=== PATIENT | male | born 1930 | race Caucasian/White ===

== ENCOUNTER 2017-11-14 13:44 | Inpatient (IN) | payer MEDICARE, BC ==
[~2017-11-14] VITALS: Ht 182.9 cm; Wt 111.1 kg
[~2017-11-14 13:44] MED LIST: Z.0.DIOVAN160 MG PO; Z.0.GABAPENTIN600 MG PO; Z.0.GLIPIZIDE5 MG PO; [UNRECOGNIZED DRUG - OTHER] PO
[2017-11-14] MEDS ORDERED: SODIUM CHLORIDE 0.9% 500ML 500 ML IV STA (13:58)
[2017-11-14] MEDS ORDERED: LEVOFLOXACIN 750MG/D5W 150ML 150 ML IV ONE (14:00)
[2017-11-14] MEDS ORDERED: ALBUTEROL/IPRATROPIUM 3 ML NEB NEB ONE (14:00)
[2017-11-14] MEDS ORDERED: METHYLPREDNISOLONE SOD SUCC 125 MG/2ML VIAL IV ONE (14:00)
[2017-11-14] MEDS ORDERED: ACETAMINOPHEN 325 MG TAB PO PRN (14:00)
[2017-11-14] MEDS ORDERED: ONDANSETRON HCL INJ 2 MG/ML VIAL IV PRN ×2 (14:00→16:00)
[2017-11-14] MEDS ORDERED: SODIUM CHLORIDE FLUSH 10 ML SYR INJ PRN (14:00)
--- NOTE | 2017-11-14 14:42 | Diagnostic Imaging Report ---
EXAMINATION: CHEST SINGLE (PORTABLE) INDICATION: COUGH, concern for CHF, pneumonia. COMPARISON: 03/06/2011. FINDINGS: TUBES and LINES: None. LUNGS: Patchy density in the lung bases suggestive of scarring, unchanged from prior examination of 2010. There is no evidence of pneumonia or pulmonary edema. PLEURA: No pleural effusion or pneumothorax. HEART AND MEDIASTINUM: The cardiac silhouette remains mildly enlarged. Mediastinal wires. Tortuous thoracic aorta with calcifications of the arch. BONES AND SOFT TISSUES: No acute osseous lesion. Soft tissues are unremarkable. UPPER ABDOMEN: No free air under the diaphragm. IMPRESSION: No acute thoracic abnormality. Signed by: Dr. Jose Vivar M.D. on 11/14/2017 2:38 PM
[2017-11-14 14:59] LABS: BASOPHILS % 0.3 % (0.0-1.0); EOSINOPHILS # (AUTO) 0.1 (0.0-0.4); EOSINOPHILS % 1.9 % (0.0-6.0); HEMATOCRIT 37.9 % (38.2-49.6); HEMOGLOBIN 12.7 g/dL (14.0-18.0); LYMPHOCYTES # (AUTO) 1.1 (1.0-3.2); LYMPHOCYTES % 19.8 % (18.0-39.1); MEAN CORPUSCULAR HEMOGLOBIN 29.4 pg (28-32); MEAN CORPUSCULAR HGB CONC 33.5 g/dL (31-35); MEAN CORPUSCULAR VOLUME 87.7 fL (81-99); NEUTROPHILS # (AUTO) 3.5 (2.1-6.9); NEUTROPHILS % 60.7 % (38.7-80.0); PLATELET COUNT 173 x10e3/uL (140-360); RED BLOOD COUNT 4.32 x10e6/uL (4.3-5.7); RED CELL DISTRIBUTION WIDTH 16.5 % (11.7-14.4)
[2017-11-14 15:17] LABS: ALBUMIN 3.5 g/dL (3.5-5.0); ANION GAP 13.4 mmol/L (8-16); CALCIUM 9.2 mg/dL (8.4-10.2); CREATININE, SERUM 1.68 mg/dL (0.72-1.25); MAGNESIUM 1.8 MG/DL (1.3-2.1); POTASSIUM 4.4 mmol/L (3.5-5.1)
[2017-11-14 15:24] LABS: CREATINE KINASE MB 1.3 ng/mL (0-5.0)
[2017-11-14] MEDS ORDERED: SODIUM CHLORIDE 0.9% 1000ML 1,000 ML IV SCH (15:53)
[2017-11-14] MEDS ORDERED: ENOXAPARIN SODIUM INJ 100 MG/ML SYR SC STA (15:53)
[2017-11-14] MEDS ORDERED: ALBUTEROL/IPRATROPIUM 3 ML NEB ONE (15:55)
[2017-11-14] MEDS ORDERED: DEXTROSE 50% SYRINGE 50 ML IV PRN (16:00)
[2017-11-14] MEDS ORDERED: ASPIRIN 81 MG CHEW TAB PO ONE (16:00)
[2017-11-14] MEDS ORDERED: DEXTROSE 50% SYRINGE 50 ML IV STA (16:01)
[2017-11-14] MEDS ORDERED: DEXTROSE 50% SYRINGE 50 ML IV ONE (16:06)
[2017-11-14] MEDS ORDERED: INSULIN REGULAR, HUMAN 100 UNIT/1 ML 3ML VIAL SQ SCH (16:30)
[2017-11-14] MEDS ORDERED: LANTUS 3ML100 UNITS/ SC (17:36)
[2017-11-14] MEDS ORDERED: HUMALOG100 UNIT/3 SC ×3 (17:36)
[2017-11-14] MEDS ORDERED: TERAZOSIN HCL1 MG PO (17:36)
[2017-11-14] MEDS ORDERED: LYRICA150 MG PO (17:36)
[2017-11-14] MEDS ORDERED: TRILIPIX135 MG PO (17:36)
[2017-11-15] MEDS ORDERED: LEVOFLOXACIN 500MG/D5W 100ML 100 ML IV SCH (09:00)
== END 2017-11-14 17:47 | disposition left against medical advice (07) | DRG 313 ==
LOC: ER 13:44 → ERHOLD 15:53 → MED/SURG 17:06
PROVIDERS: ADMIT Internal Medicine; ATTEND Internal Medicine
DX: R07.9 Chest pain, unspecified (principal); R05 Cough; Z87.891 Personal history of nicotine dependence
CPT/HCPCS: 36415; 71045; 80053; 82550; 82553; 82948; 83735; 83880; 84484; 85025; 87040; 87071; 87205; 93005; 94640; 99284; J1650; J2930; J7040; J7799

== ENCOUNTER 2017-11-29 15:37 | Inpatient (IN) | payer MEDICARE, BC ==
[~2017-11-29] VITALS: Ht 180.3 cm; Wt 108.4 kg
[~2017-11-29 15:37] MED LIST changes: +HUMALOG100 UNIT/3 SC; +LANTUS 3ML100 UNITS/ SC; +LYRICA150 MG PO; +TERAZOSIN HCL1 MG PO; +TRILIPIX135 MG PO
[2017-11-29 17:38] LABS: BASOPHILS % 0.4 % (0.0-1.0); EOSINOPHILS # (AUTO) 0.2 (0.0-0.4); EOSINOPHILS % 2.4 % (0.0-6.0); HEMATOCRIT 38.2 % (38.2-49.6); HEMOGLOBIN 12.7 g/dL (14.0-18.0); LYMPHOCYTES # (AUTO) 1.6 (1.0-3.2); MEAN CORPUSCULAR HEMOGLOBIN 29.2 pg (28-32); MEAN CORPUSCULAR HGB CONC 33.2 g/dL (31-35); MEAN CORPUSCULAR VOLUME 87.8 fL (81-99); MONOCYTES # (AUTO) 0.7 (0.2-0.8); MONOCYTES % 9.7 % (4.4-11.3); NEUTROPHILS # (AUTO) 4.3 (2.1-6.9); NEUTROPHILS % 63.8 % (38.7-80.0); PLATELET COUNT 218 x10e3/uL (140-360); RED BLOOD COUNT 4.35 x10e6/uL (4.3-5.7); RED CELL DISTRIBUTION WIDTH 16.6 % (11.7-14.4)
[2017-11-29 17:55] LABS: ALBUMIN 3.6 g/dL (3.5-5.0); ALBUMIN/GLOBULIN RATIO 1.1 (0.8-2.0); ANION GAP 15.9 mmol/L (8-16); CALCIUM 9.4 mg/dL (8.4-10.2); CREATININE, SERUM 2.2 mg/dL (0.72-1.25); POTASSIUM 4.9 mmol/L (3.5-5.1)
[2017-11-29 18:01] LABS: CREATINE KINASE MB 1.7 ng/mL (0-5.0)
[2017-11-29] MEDS ORDERED: SODIUM CHLORIDE 0.9% 1000ML 1,000 ML IV SCH (18:30)
--- NOTE | 2017-11-29 18:50 | Diagnostic Imaging Report ---
EXAM: CT Chest WITHOUT contrast INDICATION: \S\cough x 1 month \S\[id number] \S\1822 COMPARISON: Chest x-ray on 11/14/2017. Chest CT dated 09/25/2015 TECHNIQUE: Chest was scanned utilizing a multidetector helical scanner from the lung apex through the level of the adrenal glands without administration of IV contrast. Absence of intravenous contrast decreases sensitivity for detection of lymphadenopathy and vascular pathology. Coronal and sagittal reformations were obtained. Routine protocol was performed. IV CONTRAST: None COMPLICATIONS: None RADIATION DOSE: Total DLP: 599.5 mGy*cm Estimated effective dose: (DLP x 0.014 x size factor) mSv CTDIvol has been reviewed. It is below the limits set by the Radiation Protocol Committee (RPC). FINDINGS: LINES/ TUBES: None. LUNGS AND AIRWAYS: Lingular tiny calcified glioma. Posterior left lower lobe and to lesser extent right lower lobe tree-in-bud opacities (series 3, image 39). Nonspecific 3 mm posterior right lower lobe nodule (series 3, image 37). There are additional subpleural tiny lung nodules. Airways are normal. PLEURA: The pleural spaces are clear. HEART AND MEDIASTINUM: The thyroid gland is normal. No mediastinal, hilar or axillary lymphadenopathy. The heart is normal in size.. There is no pericardial effusion. Moderate atherosclerotic calcification of coronary arteries and aortic arch. Median sternotomy wires. UPPER ABDOMEN: Bilateral renal cysts. Partially seen right hemicolectomy. BONES: Degenerative changes of thoracic spine. Median sternotomy wires. SOFT TISSUES: Unremarkable. IMPRESSION: Predominantly posterior left lower lobe tree-in-bud opacities, concerning for infectious/inflammatory process. Scattered mostly subpleural nonspecific tiny lung nodules. Signed by: Dr. Caismiro Bass MD on 11/29/2017 6:47 PM
[2017-11-29] MEDS ORDERED: LEVOFLOXACIN 500MG/D5W 100ML IV SCH (19:00)
[2017-11-29] MEDS ORDERED: LEVOFLOXACIN 500MG/D5W 100ML 100 ML IV SCH (19:15)
[2017-11-29] MEDS: SODIUM CHLORIDE 0.9% 1000ML 1,000 ML IV SCH (19:25)
[2017-11-29] MEDS: AZITHROMYCIN 500MG/NS 250 ML 250 ML IV SCH (19:25)
[2017-11-29] MEDS: CEFTRIAXONE SOD 1 GM VIAL IV SCH (19:25)
[2017-11-29] MEDS: ALBUTEROL/IPRATROPIUM 3 ML NEB NEB SCH ×2 (19:40→23:10)
[2017-11-29] MEDS ORDERED: CYMBALTA60 MG PO (19:56)
[2017-11-29] MEDS: METHYLPREDNISOLONE SOD SUCC 125 MG/2ML VIAL IV SCH (21:08)
[2017-11-30] VITALS (8 sets, daily range): BP systolic 133–185; BP diastolic 57–94
[2017-11-30 01:12] LABS: CREATINE KINASE MB 2.4 ng/mL (0-5.0)
[2017-11-30] MEDS: ALBUTEROL/IPRATROPIUM 3 ML NEB NEB SCH ×6 (04:00→23:05)
[2017-11-30] MEDS: SODIUM CHLORIDE 0.9% 1000ML 1,000 ML IV SCH ×2 (04:51→17:15)
[2017-11-30] MEDS ORDERED: PANTOPRAZOLE SOD 40 MG TABEC PO ONE (05:45)
[2017-11-30 05:55] LABS: BASOPHILS % 0.2 % (0.0-1.0); HEMOGLOBIN 13.1 g/dL (14.0-18.0); LYMPHOCYTES # (AUTO) 0.9 (1.0-3.2); LYMPHOCYTES % 17.6 % (18.0-39.1); MEAN CORPUSCULAR HEMOGLOBIN 29.1 pg (28-32); MEAN CORPUSCULAR HGB CONC 32.8 g/dL (31-35); MEAN CORPUSCULAR VOLUME 88.9 fL (81-99); MONOCYTES # (AUTO) 0.1 (0.2-0.8); MONOCYTES % 1.4 % (4.4-11.3); NEUTROPHILS # (AUTO) 3.9 (2.1-6.9); NEUTROPHILS % 79.8 % (38.7-80.0); RED CELL DISTRIBUTION WIDTH 16.2 % (11.7-14.4)
[2017-11-30 06:17] LABS: PLATELET COUNT 180 x10e3/uL (140-360)
[2017-11-30 06:25] LABS: ANION GAP 17.9 mmol/L (8-16); CALCIUM 9.1 mg/dL (8.4-10.2); CREATININE, SERUM 1.98 mg/dL (0.72-1.25); POTASSIUM 4.9 mmol/L (3.5-5.1)
[2017-11-30 07:07] LABS: CREATINE KINASE MB 3.1 ng/mL (0-5.0)
--- NOTE | 2017-11-30 07:07 | Consultation ---
DATE OF CONSULTATION: November 30, 2017 PULMONARY MEDICINE CONSULTATION REASON FOR REFERRAL: Chronic cough. HISTORY: Mr. Oliva is a pleasant 87-year-old gentleman with subacute cough. Patient has had cough for 1 month. Patient with some phlegm that is mildly discolored. No associated fevers. Does not know what brought on the symptoms. Does have GERD. No history of asthma. No allergies. He took 3 antibiotics in the interim and these have failed. He comes into the emergency room. Oxygen saturation 95% on 2 L per minute by nasal cannula. Chest x-ray shows some very small left lower lung field opacities. Patient recommended for admission. I am consulted. PAST MEDICAL HISTORY: Daily GERD, hypertension, diabetes, hyperlipidemia, colon cancer 12 years ago, status post hemicolectomy and chemotherapy, coronary artery disease, status post CABG. MEDICATIONS: List reviewed per electronic record. ALLERGIES: PENICILLIN IS CITED. SOCIAL HISTORY: Patient smoked from age 13 to 41, 1.5 packs per day. Otherwise, no drinking. No drugs. Patient formerly worked in service stations. FAMILY HISTORY: Noncontributory to this admission. REVIEW OF SYSTEMS GENERAL: No weight loss. HEENT: No bloody nose. ENDOCRINE: No known thyroid disease. PULMONARY: No COPD. CARDIAC: No heart attacks. GI: There is no constipation. : No blood in the urine. DERMATOLOGIC: No rashes. NEUROLOGIC: No seizures. PSYCHIATRIC: No dysthymia right now. PHYSICAL EXAMINATION VITALS: Afebrile. Vital signs noted per electronic record. GENERAL: In no acute distress. Alert and calm. HEENT: Normocephalic and atraumatic. NECK: Supple. Throat midline. LUNGS: Bilateral air entry. Small rhonchi heard. CARDIOVASCULAR: S1 and S2. No murmurs, rubs or gallops. ABDOMEN: Soft and nontender. EXTREMITIES: No clubbing. No cyanosis. There is no edema. INTEGUMENT: No rash. No purpura. LABS: Potassium 4.9, BUN 40, creatinine 2.2. White count 6.7, hematocrit 38 and platelets 218,000. IMPRESSION AND PLAN 1. Abnormal chest radiography: Small opacities. Also, chronic bronchitis, bronchiolitis and possible sequelae of gastroesophageal reflux disease. Possible other chronic infection. 2. Subacute cough. 3. Elevated creatinine: Unknown whether it is acute versus chronic or both to me. 4. Former smoker: Quit a long time ago. 5. Significant daily gastroesophageal reflux disease. 6. History of coronary artery bypass graft and coronary artery disease. 7. Colon cancer: Status post hemicolectomy and chemotherapy about 12 years ago. 8. Hyperlipidemia. 9. Diabetes. 10. Hypertension. Patient deserves to be treated as pneumonia. Azithromycin and ceftriaxone were given. Will withhold vancomycin, but will await the cultures on the sputum that were sent. Continue daily and will cut down by tomorrow. Bronchodilators are reasonable. If there is any lag in improvement on culture base therapy, will consider bronchoscopy. Thank you very much, Dr. Adler, for allowing me the chance to participate in the care of Mr. Oliva. Do not hesitate to contact me if I can help in any way. Job#: [id number] MS
[2017-11-30] MEDS: METHYLPREDNISOLONE SOD SUCC 125 MG/2ML VIAL IV SCH ×2 (08:58→21:16)
[2017-11-30] MEDS: CEFTRIAXONE SOD 1 GM VIAL IV SCH ×2 (08:58→21:16)
[2017-11-30] MEDS ORDERED: DEXTROSE 50% SYRINGE 50 ML IV PRN (10:45)
[2017-11-30] MEDS ORDERED: INSULIN DETEMIR 100 UNIT/ML PEN SQ PRN (10:45)
--- NOTE | 2017-11-30 11:07 | Consultation ---
DATE OF CONSULTATION: November 30, 2017 HISTORY OF PRESENT ILLNESS: This is an 87-year-old gentleman with history of cough. He was admitted, and nephrology was consulted for abnormal kidney function. PAST HISTORY: Has prior history of coronary artery disease, status post bypass surgery. History of colon cancer, status post hemicolectomy and chemotherapy. History of prostate enlargement, hypertension and type-2 diabetes. SOCIAL HISTORY: Patient is . Does not smoke or drink. ALLERGIES: PENICILLIN. CURRENT REVIEW OF SYSTEMS: Negative for shortness of breath, nausea, vomiting, headache, fever or chills. CURRENT MEDICATIONS 1. Azithromycin. 2. Normal saline 100 mL an hour. 3. Albuterol and Atrovent nebulizer. 4. Rocephin 1 gram IV q.12. 5. Levaquin has been discontinued. 6. Methylprednisolone 80 mg IV q.12. 7. Protonix 40 mg once. LABS: White count is 4.84, hemoglobin 13.1. Sodium 139, potassium 4.1, bicarbonate 21, BUN 39, creatinine 1.98. BNP 37.2. PHYSICAL EXAMINATION GENERAL: Awake, alert, sitting up in no apparent distress. VITALS: Blood pressure 140/75, pulse rate 73, afebrile, respiratory rate 18. HEAD AND NECK: Corneas clear. Oral mucosa dry. LUNGS: Occasional rales, right and left lower zone. HEART: S1, S2 audible. ABDOMEN: Otherwise soft and nontender. LOWER EXTREMITIES: No edema. IMPRESSION AND PLAN 1. Acute kidney injury in a patient with diabetes. 2. Hypertension. 3. Coronary artery disease, status post bypass surgery. Scheduled for a bronchoscopy for abnormal CT scan of the chest. Plan on working up. Continue with IV normal saline. Avoid NSAIDs, angiotensin receptor blockers and ARBs. Will obtain spot urine protein to creatinine ratio. Kidney ultrasound. Apply knee-high SARI hoses. Further recommendations to follow. Job#: [id number]
[2017-11-30] MEDS ORDERED: INSULIN LISPRO 24 UNIT SC SCH ×2 (11:30→16:30)
[2017-11-30] MEDS: PREGABALIN 75 MG CAP PO SCH ×2 (11:56→16:50)
[2017-11-30] MEDS: INSULIN LISPRO 100 UNIT/1 ML 3ML VIAL SQ SCH ×5 (12:05→22:08)
--- NOTE | 2017-11-30 12:09 | History and Physical ---
Mr. Oliva is an 87-year-old male who had had cough, syncope, and the patient was coughing on 11/22/2017. Subsequently the patient had yellowish mucus. The patient claimed that he had "everything going black when I cough really hard." Patient was seen in the [facility] Emergency Room 3 weeks back for wheezing. The patient was given Cipro. SOCIAL HISTORY: Noncontributory. FAMILY HISTORY: Noncontributory. ALLERGIES: REPORTED NONE. MEDICATIONS: At this time 1. Humalog. 2. Lantus. 3. Lyrica. 4. Hydrocodone. 5. Valsartan. 6. Terazosin. 7. Fenofibrate. 8. Nitroglycerin. 9. Benzonate. 10. Cipro. REVIEW OF SYSTEMS HEENT: Normal. CARDIAC: History of hypertension. RESPIRATORY: Persistent cough. GI: History of colon cancer, resected in 2006, Cook C1. Had systemic chemotherapy. : Normal. MUSCULOSKELETAL: History of peripheral neuropathy related to diabetes mellitus. NEUROENDOCRINE: History of diabetes mellitus. PHYSICAL EXAM GENERAL: A moderately built male. No palpable adenopathy. HEART: Within normal limits. LUNGS: Coarse crepitations. ABDOMEN: Obese. Midline scar of surgery seen. RECTAL EXAM: Deferred. CENTRAL NERVOUS SYSTEM: Essentially normal. IMPRESSIONS 1. Cough syncope. 2. Upper respiratory tract infection, possible bronchopneumonia. 3. Hypertension. 4. Coronary artery disease. 5. Diabetes mellitus, insulin-dependent. 6. Chronic renal failure. 7. Peripheral neuropathy. PLAN: To have a CT of the chest, bronchoscopy, aggressive antibiotic therapy. Job#: [id number] CRISPIN
[2017-11-30] MEDS: DULOXETINE HCL 30 MG DELAYED RELEASE PO SCH (12:18)
[2017-11-30] MEDS: VALSARTAN 160 MG TAB PO SCH (16:50)
[2017-11-30] MEDS: TERAZOSIN HCL 1 MG CAP PO SCH (16:50)
[2017-11-30] MEDS ORDERED: NON-FORMULARY MEDICATION (Pregabalin (Lyrica) 150 MG) PO SCH (17:00)
[2017-11-30] MEDS ORDERED: ACETAMINOPHEN 325 MG TAB PO PRN (17:15)
[2017-11-30] MEDS ORDERED: ASPIRIN 81 MG CHEW TAB PO ONE (20:45)
[2017-11-30] MEDS ORDERED: ASPIRIN 81 MG CHEW TAB PO PRN (21:00)
[2017-11-30] MEDS: AZITHROMYCIN 500MG/NS 250 ML 250 ML IV SCH (21:16)
[2017-11-30 21:31] LABS: MAGNESIUM 1.8 MG/DL (1.3-2.1)
[2017-11-30 21:54] LABS: CREATINE KINASE MB 6.6 ng/mL (0-5.0); FREE THYROXINE INDEX 1.8329 (1.4-3.8); THYROID STIMULATING HORMONE 0.4 uIU/mL (0.350-4.940)
--- NOTE | 2017-11-30 22:54 | Consultation ---
DATE OF CONSULTATION: November 30, 2017 CLINICAL HISTORY: This is an 87-year-old white man known to me from previous evaluations, referred by Dr. Adler for cardiovascular evaluation in the setting of near syncope related to cough. According to the patient, he has had this productive cough with yellow sputum for approximately a month. He went to see Dr. Adler today and in the office he started coughing and had near syncopal spell. Dr. Adler then decided to admit him. CT scan of the chest showed posterior left lower lobe opacity suggestive of inflammatory disease. EKG showed no acute changes. While waiting in the observation unit, he developed left-sided chest pain rated 1 on the scale of 10 lasting for approximately 30 minutes. EKG failed to show any acute changes. Cardiology consultation requested. PAST MEDICAL HISTORY: Remarkable for coronary artery disease in 1989, he had angioplasty of the proximal LAD in 1990, he had restenosis and underwent repeat procedure. In 1992, he underwent plain balloon angioplasty of the obtuse marginal artery. In 2001, he developed restenosis and underwent double vessel bypass surgery with internal mammary to the LAD and vein graft to the obtuse marginal artery. Since that time, he has been followed conservatively, remaining satisfactory. He has developed renal insufficiency. His creatinine is in the range of 2.1 to 2.2. He has had a vein procedure recently elsewhere for which he is not quite satisfied. Echocardiogram in May 2016 showed his ejection fraction to be normal in the range of 65% to 70%. He is chronically short of breath. Nuclear stress test in 2015 showed a large inferolateral scar, however, his ejection fraction was preserved. Past medical history is also remarkable for diabetes, hypertension, peripheral neuropathy, Paget disease, colon cancer, noncompliance, hyperlipidemia, kidney stones, chronic pain, chronic kidney disease stage 3. MEDICATIONS AT HOME: Included valsartan 160 mg p.o. daily, fenofibrate 135 mg daily, Lyrica 150 mg p.o. t.i.d., Lantus insulin, nitroglycerin p.r.n., NovoLog insulin, terazosin 5 mg p.o. b.i.d., Advil, duloxetine. PAST SURGICAL HISTORY: Included double vessel bypass surgery in 2001, lumbar laminectomy, partial colectomy, herniorrhaphy, epidural ejection of the elbow. FAMILY HISTORY: Noncontributory. PERSONAL/SOCIAL HISTORY: Denies smoking, drinking. ALLERGIES: TO PENICILLIN. REVIEW OF SYSTEMS: Noncontributory. PHYSICAL EXAMINATION: GENERAL: He is obese, elderly. CARDIAC: Jugular veins were not distended. S1, S2 were regular. There were no appreciable murmurs. LUNGS: Clear. ABDOMEN: Soft. Bowel sounds are present. EXTREMITIES: Show no cyanosis, clubbing or edema. LABORATORY STUDIES: The white count is 4800, hemoglobin is 13.1, platelet count is 180,000. The bicarb is 21, BUN is 39, creatinine is 1.98. IMPRESSION: 1. Bronchitis with cough and near syncope. 2. Coronary artery disease, status post previous balloon angioplasty and double vessel bypass surgery between 1989 and 2001. 3. Diabetes. 4. Hypertension. 5. History of colon cancer. 6. History of Paget disease. 7. Hyperlipidemia. 8. History of kidney stones. 9. Chronic kidney disease stage 3 with creatinine around 2. 10. History of anemia related to colon cancer. 11. Peripheral neuropathy. RECOMMENDATIONS: Due to his advanced age, I recommend conservative management. Thank you very much. Job#: [id number] GE cc:ESTELLA ADLER MD
[2017-12-01] VITALS (8 sets, daily range): BP systolic 127–175; BP diastolic 63–85
[2017-12-01] MEDS ORDERED: ASPIRIN 81 MG CHEW TAB ONE (00:38)
[2017-12-01] MEDS: ALBUTEROL/IPRATROPIUM 3 ML NEB NEB SCH ×7 (03:15→23:10)
[2017-12-01] MEDS: SODIUM CHLORIDE 0.9% 1000ML 1,000 ML IV SCH ×3 (04:10→20:58)
[2017-12-01 05:54] LABS: ANION GAP 17.1 mmol/L (8-16); CALCIUM 8.4 mg/dL (8.4-10.2); CREATININE, SERUM 1.73 mg/dL (0.72-1.25); POTASSIUM 5.1 mmol/L (3.5-5.1)
[2017-12-01 06:27] LABS: CREATINE KINASE MB 8.1 ng/mL (0-5.0)
[2017-12-01] MEDS ORDERED: INSULIN LISPRO 24 UNIT SC SCH (07:30)
[2017-12-01] MEDS: FENOFIBRIC ACID 135 MG PO SCH (09:00)
[2017-12-01] MEDS ORDERED: NON-FORMULARY MEDICATION (Duloxetine Hcl (Cymbalta) 60 MG) PO SCH (09:00)
[2017-12-01] MEDS: DULOXETINE HCL 30 MG DELAYED RELEASE PO SCH (09:07)
[2017-12-01] MEDS: METHYLPREDNISOLONE SOD SUCC 125 MG/2ML VIAL IV SCH (09:07)
[2017-12-01] MEDS: CEFTRIAXONE SOD 1 GM VIAL IV SCH ×2 (09:07→21:02)
[2017-12-01] MEDS: VALSARTAN 160 MG TAB PO SCH ×2 (09:08→17:24)
[2017-12-01] MEDS: TERAZOSIN HCL 1 MG CAP PO SCH ×2 (09:08→17:24)
[2017-12-01] MEDS: PREGABALIN 75 MG CAP PO SCH ×2 (09:28→17:24)
[2017-12-01] MEDS: INSULIN LISPRO 100 UNIT/1 ML 3ML VIAL SQ SCH ×7 (10:34→21:18)
--- NOTE | 2017-12-01 12:12 | Diagnostic Imaging Report ---
PROCEDURE:US RETROPERITONEAL ( KIDNEY ). COMPARISON:None. INDICATIONS:ACUTE KIDNEY INJURY TECHNIQUE:Ultrasound examination was performed of the kidneys and bladder. FINDINGS: Multiple sagittal and axial images were obtained of the right and left kidneys. The right kidney measures 12.1 cm. It is of normal echogenicity, without evidence of solid masses, hydronephrosis, or shadowing renal calculi. Three simple appearing right sided renal cysts are present, measuring up to 6.7 cm in the superior pole laterally, 4.1 cm in the superior pole medially, and 2.6 cm in the mid pole medially. The left kidney measures 9.7 cm. It is of normal echogenicity, without evidence of solid masses, hydronephrosis, or shadowing renal calculi. There is a simple cyst in the superior pole of the left kidney which measures up to 4.4 cm. An additional minimally complex hypoechoic cyst measures up to 3.4 cm, previously 2.5 cm on ultrasound from 12/31/2009. Given the minimal increase in size over this time, this is consistent with a benign cyst. Incidental hyperechoic appearance of the liver. The bladder and prostate are unremarkable. Bilateral ureteral jets are noted. CONCLUSION: Bilateral renal cysts as above. No evidence of hydronephrosis. Incidental hyperechoic liver, which may represent fatty liver. Electronically approved by: TINY MCKNIGHT M.D. on 12/01/2017 at 12:17
[2017-12-01] MEDS: SODIUM BICARBONATE 650 MG TAB PO SCH ×2 (12:33→16:30)
[2017-12-01 12:43] LABS: CREATINE KINASE MB 8.6 ng/mL (0-5.0)
[2017-12-01] MEDS ORDERED: TRAMADOL/APAP 37.5MG-325MG TAB PO PRN (16:00)
[2017-12-01] MEDS ORDERED: SODIUM BICARBONATE 650 MG TAB PO SCH (16:15)
[2017-12-01] MEDS ORDERED: TRAMADOL HCL 50 MG TAB PO PRN (16:15)
[2017-12-01] MEDS ORDERED: LACTULOSE SYRUP 20 GM/30 ML UDC PO ONE (20:15)
[2017-12-01] MEDS ORDERED: SOD POLYSTYRENE SULFONATE SUSP 15 GM/60 ML BTL PO ONE (20:15)
[2017-12-01] MEDS: AZITHROMYCIN 500MG/NS 250 ML 250 ML IV SCH (21:02)
[2017-12-02] VITALS: BP 169/72
--- NOTE | 2017-12-02 01:43 | Progress Note ---
DATE: December 01, 2017 PULMONARY MEDICINE PROGRESS NOTE SUBJECTIVE: Mr. Oliva was seen and examined at bedside. He walked today. He claims he does feel better. Sputum culture with moderate WBCs, few GPCs. Blood cultures x2 are still negative. There is less sputum that he is coughing out. REVIEW OF SYSTEMS: No headaches, no diarrhea. OBJECTIVE: VITAL SIGNS: Afebrile, vital signs noted per electronic record. GENERAL: In no acute distress, alert and calm. HEENT: Normocephalic, atraumatic. NECK: Supple. Throat midline. LUNGS: Bilateral air entry, rare rhonchi, mostly clear. Decreased breath sounds at base. CARDIOVASCULAR: S1, S2. No murmurs, rubs, or gallops. ABDOMEN: Soft, nontender. EXTREMITIES: No clubbing, no cyanosis, there is no edema. INTEGUMENT: No rash, no purpura. LABS: 42 BUN, 1.7 creatinine. 5.1 potassium, 5 white count, 40 hematocrit. IMPRESSION AND PLAN: 1. Acute pneumonia. 2. Subacute cough, not otherwise specified. 3. Obesity. 4. Elevated creatinine, ideed-du-cmolvvw kidney disease most likely. 5. Hyperkalemia, mild. 6. History of cancer of colon, status post surgery and chemotherapy long ago. Repeat laboratories tomorrow. Follow up potassium and creatinine and ensure more improvement. Continue antibiotics for pneumonia. wean down to prednisone. However, will be very careful. Consideration for bronchoscopy will ensue if patient has lag in improvement. Patient will eventually need repeat chest computerized tomography to ensure resolution of the findings from previous computerized axial tomography scan. Job#: [id number]
[2017-12-02] MEDS: ALBUTEROL/IPRATROPIUM 3 ML NEB NEB SCH ×5 (03:20→19:45)
[2017-12-02 04:00] VITALS: BP 167/80
[2017-12-02 05:19] LABS: ALBUMIN 3.1 g/dL (3.5-5.0); ALBUMIN/GLOBULIN RATIO 1.1 (0.8-2.0); ANION GAP 14.4 mmol/L (8-16); CALCIUM 8.3 mg/dL (8.4-10.2); CREATININE, SERUM 1.46 mg/dL (0.72-1.25); POTASSIUM 4.4 mmol/L (3.5-5.1)
[2017-12-02] MEDS: SODIUM CHLORIDE 0.9% 1000ML 1,000 ML IV SCH ×2 (06:19→16:53)
[2017-12-02 07:00] VITALS: BP 170/84
[2017-12-02] MEDS: INSULIN LISPRO 100 UNIT/1 ML 3ML VIAL SQ SCH ×7 (07:25→21:35)
[2017-12-02 08:00] VITALS: BP 170/84
[2017-12-02] MEDS: FENOFIBRIC ACID 135 MG PO SCH (08:21)
[2017-12-02] MEDS: PREGABALIN 75 MG CAP PO SCH ×2 (08:21→16:53)
[2017-12-02] MEDS: DULOXETINE HCL 30 MG DELAYED RELEASE PO SCH (08:21)
[2017-12-02] MEDS: PREDNISONE 20 MG TAB PO SCH (08:21)
[2017-12-02] MEDS: TERAZOSIN HCL 1 MG CAP PO SCH ×2 (08:21→16:53)
[2017-12-02] MEDS: CEFTRIAXONE SOD 1 GM VIAL IV SCH ×2 (08:21→20:35)
[2017-12-02] MEDS ORDERED: AMLODIPINE BESYLATE 5 MG TAB PO SCH (10:15)
[2017-12-02 12:00] VITALS: BP 156/84
[2017-12-02 20:00] VITALS: BP 159/82
[2017-12-02] MEDS: AZITHROMYCIN 500MG/NS 250 ML 250 ML IV SCH (20:35)
--- NOTE | 2017-12-02 23:57 | Progress Note ---
DATE: December 02, 2017 PULMONARY MEDICINE PROGRESS NOTE SUBJECTIVE: Mr. Oliva was seen and examined at bedside. He is on room air FiO2. He is breathing better. Still occasional mucus that he is coughing out. Patient remains with telemetry in place, but without any arrhythmias. REVIEW OF SYSTEMS: No headaches, no bleeding. OBJECTIVE: VITAL SIGNS: Afebrile, vital signs noted per electronic record. GENERAL: In no acute distress, alert and calm. HEENT: Normocephalic, atraumatic. NECK: Supple. Throat midline. LUNGS: Bilateral air entry, limited breath sounds at bases, few rhonchi. CARDIOVASCULAR: S1, S2. No murmurs, rubs, or gallops. ABDOMEN: Soft, obese. EXTREMITIES: No clubbing, no cyanosis, there is the 1+ edema. INTEGUMENT: No rash, no purpura. LABS: 4.4 potassium, improved. Other labs per record. IMPRESSION AND PLAN: 1. Acute pneumonia. 2. Subacute cough. 3. History of colon cancer, status post hemicolectomy and chemotherapy. 4. Weakness, mild. Continue current treatment at this time. Patient has steady improvement. Will continue weaning the steroids down and continue the prednisone at current dose. Continue bronchodilators. Antibiotics will be continued. Mobilize the patient. If he continues to get better, we hope to get discharge planning soon. Patient will need outpatient computerized tomography in about 2 months time for him to ensure appropriate clearance of the infiltrates. Job#: [id number]
[2017-12-03] VITALS (7 sets, daily range): BP systolic 135–178; BP diastolic 66–96
[2017-12-03] MEDS: ALBUTEROL/IPRATROPIUM 3 ML NEB NEB SCH ×5 (03:05→19:00)
[2017-12-03] MEDS: SODIUM CHLORIDE 0.9% 1000ML 1,000 ML IV SCH ×2 (05:05→13:00)
[2017-12-03 05:46] LABS: ALBUMIN 2.9 g/dL (3.5-5.0); ANION GAP 13.1 mmol/L (8-16); CALCIUM 8.4 mg/dL (8.4-10.2); CREATININE, SERUM 1.34 mg/dL (0.72-1.25); POTASSIUM 4.1 mmol/L (3.5-5.1)
[2017-12-03] MEDS: INSULIN LISPRO 100 UNIT/1 ML 3ML VIAL SQ SCH ×6 (07:30→17:20)
[2017-12-03] MEDS: FENOFIBRIC ACID 135 MG PO SCH (09:00)
[2017-12-03] MEDS ORDERED: AMLODIPINE BESYLATE 10 MG TAB PO SCH (09:00)
[2017-12-03] MEDS: PREGABALIN 75 MG CAP PO SCH ×2 (09:36→16:30)
[2017-12-03] MEDS: PREDNISONE 20 MG TAB PO SCH (09:36)
[2017-12-03] MEDS: DULOXETINE HCL 30 MG DELAYED RELEASE PO SCH (09:36)
[2017-12-03] MEDS: TERAZOSIN HCL 1 MG CAP PO SCH ×2 (09:36→16:34)
[2017-12-03] MEDS: CEFTRIAXONE SOD 1 GM VIAL IV SCH (09:36)
[2017-12-03] MEDS ORDERED: LOSARTAN POTASSIUM 25 MG TAB PO SCH (11:00)
[2017-12-03] MEDS ORDERED: PROCARDIA XL30 MG PO (21:07)
[2017-12-03] MEDS ORDERED: AZITHROMYCIN250 MG PO (21:07)
--- NOTE | 2017-12-04 02:33 | Progress Note ---
DATE: December 03, 2017 PULMONARY MEDICINE PROGRESS NOTE SUBJECTIVE: Mr. Oliva was seen and examined at bedside. He is on normal saline at 100 mL per hour. He feels much better. His cough has decreased. He is on room air FiO2 right now. REVIEW OF SYSTEMS: No bleeding, no rash. OBJECTIVE: VITAL SIGNS: Afebrile, vital signs noted per electronic record. GENERAL: In no acute distress, alert and calm. HEENT: Normocephalic. NECK: Supple. LUNGS: Bilateral air entry. CARDIOVASCULAR: S1, S2. ABDOMEN: Soft. INTEGUMENT: No rash. EXTREMITIES: 1+ edema. IMPRESSION AND PLAN: 1. Acute pneumonia. 2. Subacute cough. 3. History of colon cancer, status post hemicolectomy and chemotherapy. 4. Weakness, improving. 5. Elevated creatinine, chronic kidney disease presumed. 6. Gastroesophageal reflux disease. 7. Coronary artery disease and coronary artery bypass graft. 8. Hyperlipidemia, diabetes, hypertension. Antibiotics are continued. Steroids will be continued to be weaned. Wean off the intravenous fluid. Discharge planning is being done as per primary doctor and patient. Consideration should be for some bronchodilators, but patient later felt that he had to go from the hospital prematurely. Thank you very much, Dr. Adler for allowing me the chance to participate in the care of Mr. Oliva. I will see back and coordinate some inhalers for him to take on outpatient basis. Job#: [id number]
[2017-12-04] MEDS ORDERED: PREDNISONE 20 MG TAB PO SCH (09:00)
== END 2017-12-03 21:22 | disposition home or self-care (01) | DRG 194 ==
LOC: ER 15:37 → ERHOLD 19:35 → IMCU 11-30 → OBSVTOIN 11-30 14:14 → MED/SURG2 12-01 18:17
PROVIDERS: ADMIT Internal Medicine Medical Oncology; ATTEND Internal Medicine Medical Oncology
DX: J18.0 Bronchopneumonia, unspecified organism (principal); N17.9 Acute kidney failure, unspecified; E87.2 Acidosis; I12.9 Hypertensive chronic kidney disease with stage 1 through stage 4 chronic kidney disease, or unspecified chronic kidney disease; E11.22 Type 2 diabetes mellitus with diabetic chronic kidney disease; N18.3 Chronic kidney disease, stage 3 (moderate); I25.10 Atherosclerotic heart disease of native coronary artery without angina pectoris; Z98.61 Coronary angioplasty status; E11.51 Type 2 diabetes mellitus with diabetic peripheral angiopathy without gangrene; Z79.4 Long term (current) use of insulin; E78.5 Hyperlipidemia, unspecified; E66.9 Obesity, unspecified; Z68.33 Body mass index [BMI] 33.0-33.9, adult; Z95.1 Presence of aortocoronary bypass graft; Z87.891 Personal history of nicotine dependence; K21.9 Gastro-esophageal reflux disease without esophagitis; Z88.0 Allergy status to penicillin; E87.5 Hyperkalemia; Z85.038 Personal history of other malignant neoplasm of large intestine
CPT/HCPCS: 36415; 71250; 76770; 80048; 80053; 82550; 82553; 82948; 83735; 83880; 84436; 84443; 84479; 84484; 85025; 87040; 87070; 87205; 93005; 94640; 96372; 99284; G0378; J0456; J0696; J2930; J7030

== ENCOUNTER 2017-12-25 21:42 | Emergency (ER) | payer MEDICARE, BC ==
[~2017-12-25] VITALS: Ht 180.3 cm; Wt 108.4 kg
[~2017-12-25 21:42] MED LIST changes: +AZITHROMYCIN250 MG PO; +CYMBALTA60 MG PO; +PROCARDIA XL30 MG PO
== END 2017-12-25 22:42 | disposition home or self-care (01) ==
LOC: ER 21:42
DX: S91.112A Laceration without foreign body of left great toe without damage to nail, initial encounter (principal); W22.8XXA Striking against or struck by other objects, initial encounter; Y92.008 Other place in unspecified non-institutional (private) residence as the place of occurrence of the external cause; I10 Essential (primary) hypertension; E11.9 Type 2 diabetes mellitus without complications; E78.5 Hyperlipidemia, unspecified; Z95.1 Presence of aortocoronary bypass graft; Z85.038 Personal history of other malignant neoplasm of large intestine

== ENCOUNTER 2018-05-28 10:22 | Observation (INO) | payer MEDICARE, BC ==
[~2018-05-28] VITALS: Ht 177.8 cm; Wt 110.9 kg
--- OUTSIDE RECORDS SUMMARY | 2018-05-28 10:26 | XMS REPORT | Continuity of Care Document ---
Author Author [facility] Interface Address Unknown Phone Unavailable Problems Problem Status Onset Date Classification Date Reported Comments Source 719.45 - JOINT PAIN-PELV 724.02 - "SPIN Active 12/12/2012 SHAYAN Esposito M16.9 Active [facility] OSTEOARTHRITIS OF HIP, UNSPECIFIED Active [facility] Medications Medication Details Route Status Patient Instructions Ordering Provider Order Date Source Allergies, Adverse Reactions, Alerts Substance Category Reaction Severity Reaction type Status Date Reported Comments Source Immunizations Immunization Date Given Site Status Last Updated Comments Source Results Order Name Results Value Reference Range Date Interpretation Comments Source Hip 2/3 views uni DX Hip 2/3 views uni DX LEFT HIP, 2 VIEWS HISTORY: Osteoarthritis of hip unspecified. COMPARISON: None available. FINDINGS: No significant arthritic changes are identified. Hip joint space is preserved. No subchondral cystic change or significant osteophytosis. No fracture, dislocation, or aggressive osseous lesion. No evidence of femoral head osteonecrosis. SL: [id number] 06/01/2016 - - Read by: Av Abbott MD Dictated Date/time: 06/01/16 15:15 Electronically Signed by: Av Abbott MD 06/01/16 15:16 FINAL REPORT [facility] Vital Signs Vital Sign Value Date Comments Source Encounters Location Location Details Encounter Type Encounter Number Reason For Visit Attending Provider ADM Date DC Date Status Source OD [id number] 719.45 - JOINT PAIN-PELV 724.02 - "SPIN STEN,LUMBR" [address] 12/16/2012 Active SHAYAN Esposito [facility] Outpatient [id number] Misti Freeman 06/01/2016 06/02/2016 [facility] Procedures Procedure Code Date Perfomer Comments Source
[2018-05-28] MEDS ORDERED: ASPIRIN 81 MG CHEW TAB PO ONE (10:30)
[2018-05-28 11:00] LABS: BASOPHILS % 0.5 % (0.0-1.0); EOSINOPHILS # (AUTO) 0.1 (0.0-0.4); EOSINOPHILS % 1.9 % (0.0-6.0); HEMATOCRIT 40.1 % (38.2-49.6); HEMOGLOBIN 13.3 g/dL (14.0-18.0); LYMPHOCYTES # (AUTO) 1.5 (1.0-3.2); LYMPHOCYTES % 35.6 % (18.0-39.1); MEAN CORPUSCULAR HEMOGLOBIN 29.8 pg (28-32); MEAN CORPUSCULAR HGB CONC 33.2 g/dL (31-35); MEAN CORPUSCULAR VOLUME 89.7 fL (81-99); MONOCYTES # (AUTO) 0.4 (0.2-0.8); NEUTROPHILS # (AUTO) 2.2 (2.1-6.9); NEUTROPHILS % 52.3 % (38.7-80.0); PLATELET COUNT 150 x10e3/uL (140-360); RED BLOOD COUNT 4.47 x10e6/uL (4.3-5.7); RED CELL DISTRIBUTION WIDTH 17.5 % (11.7-14.4)
[2018-05-28 11:13] LABS: PROTHROMBIN TIME 14.1 seconds (11.9-14.5)
[2018-05-28 11:14] LABS: PARTIAL THROMBOPLASTIN TIME 34.6 seconds (23.8-35.5)
[2018-05-28 11:21] LABS: ALBUMIN 3.8 g/dL (3.5-5.0); ALBUMIN/GLOBULIN RATIO 1.3 (0.8-2.0); CALCIUM 9.1 mg/dL (8.4-10.2); CREATININE, SERUM 1.73 mg/dL (0.72-1.25); MAGNESIUM 2.4 MG/DL (1.3-2.1)
[2018-05-28 11:41] LABS: CREATINE KINASE MB 1.5 ng/mL (0-5.0); THYROID STIMULATING HORMONE 2.424 uIU/mL (0.350-4.940)
--- NOTE | 2018-05-28 12:05 | Diagnostic Imaging Report ---
EXAMINATION: CHEST SINGLE (PORTABLE) COMPARISON: Chest x-ray 11/14/2017 INDICATION: Altered level of consciousness, weakness ^ERMD ORDER ^[id number] ^1100 ^Y DISCUSSION: Frontal view of the chest obtained at 1140 hours. HEART AND MEDIASTINUM: Stable cardiomegaly and aortic ectasia. LINES: None. LUNGS: Diffuse hyperinflation suggestive of small airways disease. Increased lung markings in the bases. Central pulmonary vascular is prominent but stable. PLEURA: No pleural effusion or pneumothorax. BONES AND SOFT TISSUES: Median sternotomy wires are intact no focal osseous lesions.. The soft tissues are normal. IMPRESSION: Stable cardiomegaly. Mild vascular congestion. Bibasilar airspace opacities may represent atelectasis. Please correlate for signs/symptoms of pneumonia. Signed by: Dr. Garfield Ramirez MD on 05/28/2018 12:02 PM
[2018-05-28] MEDS ORDERED: TYLENOL WITH C1 EACH PO (12:25)
[2018-05-28] MEDS ORDERED: NORCO 7.5-3251 EACH PO (12:25)
[2018-05-28] MEDS ORDERED: NITROGLYCERIN0.4 MG SL (12:25)
[2018-05-28] MEDS ORDERED: LOSARTAN POTASS25 MG PO (12:25)
[2018-05-28 12:27] LABS: INFLUENZAE A&B ANTIGEN (RAPID) NEGATIVE (NEGATIVE)
[2018-05-28 12:31] LABS: STREPTOCOCCUS GRP A ANTIGEN NEGATIVE (NEGATIVE)
--- NOTE | 2018-05-28 12:44 | Diagnostic Imaging Report ---
EXAMINATION: Head CT HISTORY: Weakness, alteration of consciousness COMPARISON: Head CT REPORT on 01/20/2011 (unable to load images from prior head CT). TECHNIQUE: Multidetector axial images were obtained without contrast from the foramen magnum to the vertex . The images were reconstructed using brain and bone algorithms. Thin section brain images were reformatted into coronal and sagittal planes. Image quality: Motion/streaking artifact limits the evaluation of the skull base and posterior cranial fossa. Dose modulation, iterative reconstruction, and/or weight based adjustment of the mA/kV was utilized to reduce the radiation dose to as low as reasonably achievable. FINDINGS: Parenchyma: 1. Few scattered and mildly confluent periventricular white matter hypodensities, most likely age-appropriate chronic microvascular ischemic changes. 2. No mass or hemorrhage. No CT evidence of acute territorial vascular insult. Extra-axial spaces:No abnormal density. No extra-axial fluid collections Brain volume: Normal for age. Ventricles: No hydrocephalus or displacement. Arteries: No density suggestive of thrombus. Dural sinuses: No abnormal density. Extra-axial spaces: No abnormal density. Foramen magnum: No mass, Chiari malformation, or basilar invagination. Sella: No obvious mass. Paranasal/mastoid sinuses: Imaged portions unremarkable. Skull/Scalp: The prior report there is persistent diffuse abnormal density and expansion of the calvarium, again likely related to Paget's . 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 IMPRESSION: 1. No acute intracranial hemorrhagic or cortical infarcts. 2. Mild chronic microvascular ischemic changes. 3. Persistent findings consistent with Paget's disease in the calvarium . Prior CT report dated 01/20/2011. Signed by: Dr. Mary Ann Guzmán M.D. on 05/28/2018 12:41 PM
[2018-05-28 13:44] LABS: BILIRUBIN,URINE NEGATIVE (NEGATIVE); CLARITY,URINE HAZY (CLEAR); COLOR,URINE YELLOW (YELLOW); KETONES,URINE NEGATIVE (NEGATIVE); LEUKOCYTE ESTERASE ,URINE NEGATIVE (NEGATIVE); NITRITE,URINE NEGATIVE (NEGATIVE); PROTEIN,URINE DIPSTICK NEGATIVE (NEGATIVE); URINE UROBILINOGEN 0.2 mg/dL (0.2 - 1)
[2018-05-28 13:46] LABS: BACTERIA,URINE FEW /HPF; EPITHELIAL CELLS,URINE FEW /LPF; RBC,URINE 0-5 /HPF (0-5); WBC,URINE (MAN) 0-5 /HPF (0-5)
[2018-05-28] MEDS ORDERED: ONDANSETRON HCL INJ 2MG/ML 2ML 2 MG/ML VIAL IV PRN (14:00)
[2018-05-28] MEDS ORDERED: DEXTROSE 50% SYRINGE 50 ML IV PRN (14:00)
--- NOTE | 2018-05-28 14:58 | NUR ---
Report given to nurse Carlton.
[2018-05-28] MEDS ORDERED: NITROGLYCERIN 0.4 MG SUBL SL PRN (15:00)
[2018-05-28] MEDS: FAMOTIDINE 20 MG/2 ML VIAL IV SCH (15:09)
--- NOTE | 2018-05-28 15:25 | NUR ---
Recvd patient from ER, aaoX3 , assisted him to bed, not in any distress, denies SOB, call light in reach, at bed side. keep monitoring
[2018-05-28] MEDS ORDERED: AZITHROMYCIN 250MG/NS 100 ML 100 ML IV SCH (15:30)
[2018-05-28] MEDS ORDERED: LEVOFLOXACIN 250MG/D5W 50ML 50 ML IV SCH (15:30)
--- NOTE | 2018-05-28 15:49 | History and Physical ---
HPI: Glenroy Oliva is an 87-year-old white male. According to the , he was at the lunch table. Subsequently, she tried to communicate with him. The patient became unresponsive, slumped down, and vomited. The vomitus came out through the nose. Subsequently as per the , he passed out. Subsequently, she had called ambulance and brought to the emergency room. HISTORY OF PAST ILLNESS 1. History of colon cancer. 2. History of coronary artery disease. 3. History of diabetes mellitus. 4. History of peripheral neuropathy. SOCIAL HISTORY: Noncontributory. FAMILY HISTORY: Noncontributory. ALLERGIES: REPORTED NONE. MEDICATIONS: At this time; 1. Aspirin. 2. Pepcid. 3. Humalog. 4. Ondansetron. REVIEW OF SYSTEMS HEENT: Normal. CARDIAC: History of coronary artery disease. RESPIRATORY: Normal. GI: History of colon cancer, treated with surgery and adjuvant systemic chemotherapy. : Normal. MUSCULOSKELETAL: Normal. NEUROENDOCRINE: History of diabetes. PHYSICAL EXAMINATION GENERAL: A rather obese male, at the present time alert. NECK: No palpable adenopathy. HEART: Within normal limits. LUNGS: Clear. ABDOMEN: Obese. RECTAL: Exam deferred. CENTRAL NERVOUS SYSTEM: Essentially normal. EXTREMITIES: Essentially normal. LABS: Show a sodium of 141, potassium 4.0, chloride 74, CO2 of 26, BUN 34, creatinine 1.73, calcium 9.1. Magnesium high at 2.4. TSH 2.42. IMAGING: Consists of CAT scan of the brain, which was reported essentially normal. Paget disease of the calvarium. Chest x-ray shows mild vascular congestion, bilateral airspace opacity, possibility of bronchial pneumonia was raised. IMPRESSION 1. Possible syncope. 2. History of coronary artery disease. 3. History of diabetes mellitus. 4. History of colon cancer. 5. Peripheral neuropathy. 6. Possible aspiration pneumonia. PLAN: Plan is to have cardiology consultation and cultures. The patient will also have antibiotics to avoid sepsis as index suspicion is very high as he did aspirate. Job#: [id number] MYRTLE
--- NOTE | 2018-05-28 16:11 | Consultation ---
DATE OF CONSULTATION: May 28, 2018 CARDIOLOGY CONSULTATION Thank you so much for asking me to see this nice patient again in consultation. Mr. Oliva is a complex, very hard of hearing, very elderly 87-year-old man with multiple medical problems, who presented to the emergency room today accompanied by his with a complaint of passing out. HISTORY OF PRESENT ILLNESS: This patient reports he had been away "working out" and when he came home, he was sitting at the table but became "incoherent "and vomited at the table. He was unresponsive for some time. PAST MEDICAL HISTORY: Significant for a longstanding hypertension, coronary disease with bypass graft surgery in 2001, longstanding type 2 adult onset diabetes, peripheral neuropathy, Paget's disease, colon cancer, noncompliance, hyperlipidemia, kidney stones, and chronic kidney disease. PREVIOUS SURGERIES: Have been coronary bypass in 2001, lumbar laminectomy, partial colectomy, hernia repair, elbow surgeries. PREVIOUS HOME MEDICATIONS: Have been fenofibrate 135 mg daily, Lyrica 150 mg 3 times a day, Lantus insulin 70 to 75 units once a day, Humalog KwikPen 30 units in the morning and 24 units 4 times a day, Advil, duloxetine, terazosin 1 mg twice a day, losartan 50 mg daily. PERSONAL AND SOCIAL HISTORY: He lives with his . He does not smoke or drink. ALLERGIES: HE IS ALLERGIC TO PENICILLIN. HOSPITALIZATIONS: Patient was hospitalized at [facility] in 2018 for pneumonia. PHYSICAL EXAMINATION GENERAL: At this time shows an elderly obese white man who is alert, responsive with hearing aids in both ears. VITAL SIGNS: Blood pressure is 120/70. HEAD, EYES, EARS, NOSE, AND THROAT: Otherwise unremarkable. THORAX: There is healed midline sternotomy. HEART: Sounds S1 and S2 are equal. He has a 2/6 systolic murmur. LUNGS: Clear. ABDOMEN: Markedly protuberant. EXTREMITIES: Show no cyanosis, clubbing, or edema. EKG shows sinus rhythm without ST or T wave changes. INITIAL LABORATORY STUDIES: Unrevealing. ASSESSMENT 1. Syncope, probable vasovagal in origin. 2. Type 2 adult onset diabetes. 3. Hypertension. 4. Coronary artery disease with previous bypass graft surgery. PLAN: We will monitor. He had been without his losartan for several days or weeks, pending recall of the medication and has recently resumed his medication. We will monitor rhythm and blood pressure and recheck echocardiogram. Thank for asking me to see him in consultation. Job#: [id number] LPA
[2018-05-28 16:20] VITALS: BP 220/99
[2018-05-28] MEDS: AZITHROMYCIN 250MG/NS 100 ML 100 ML IV SCH (16:40)
[2018-05-28] MEDS: INSULIN LISPRO 100 UNIT/1 ML 3ML VIAL SQ SCH ×2 (16:50→21:04)
--- NOTE | 2018-05-28 16:55 | NUR ---
Rechecked BP manually 180/90 , will give scheduled BP medication ,will recheck BP
[2018-05-28 17:05] VITALS: BP 180/90
[2018-05-28] MEDS: TERAZOSIN HCL 1 MG CAP PO SCH (17:13)
[2018-05-28] MEDS: LEVOFLOXACIN 250MG/D5W 50ML 50 ML IV SCH (17:30)
[2018-05-28] MEDS: HYDROCODONE/APAP 7.5MG-325MG 1 EA TAB PO SCH ×2 (18:00→23:12)
[2018-05-28 18:45] LABS: CREATINE KINASE MB 1.7 ng/mL (0-5.0)
--- NOTE | 2018-05-28 18:52 | NUR ---
patient resting in bed, Alert with no distress, call light in reach, bed alarm on
[2018-05-28 20:00] VITALS: BP 144/69
[2018-05-28] MEDS: INSULIN DETEMIR 100 UNIT/ML PEN SQ SCH (21:00)
--- NOTE | 2018-05-28 21:04 | NUR ---
urine specimen has been collected and sent to lab. awaiting results.
[2018-05-29] VITALS (7 sets, daily range): BP systolic 131–174; BP diastolic 59–77
[2018-05-29] MEDS: ACETAMINOPHEN/CODEINE 300MG - 30MG TAB PO PRN ×2 (00:56→21:00)
[2018-05-29] MEDS: FAMOTIDINE 20 MG/2 ML VIAL IV SCH ×2 (02:09→14:50)
[2018-05-29 05:28] LABS: BASOPHILS % 0.2 % (0.0-1.0); EOSINOPHILS % 0.2 % (0.0-6.0); HEMATOCRIT 35.2 % (38.2-49.6); HEMOGLOBIN 12.4 g/dL (14.0-18.0); LYMPHOCYTES # (AUTO) 1.6 (1.0-3.2); LYMPHOCYTES % 16.3 % (18.0-39.1); MEAN CORPUSCULAR HEMOGLOBIN 30.5 pg (28-32); MEAN CORPUSCULAR HGB CONC 35.2 g/dL (31-35); MEAN CORPUSCULAR VOLUME 86.7 fL (81-99); MONOCYTES # (AUTO) 0.8 (0.2-0.8); MONOCYTES % 7.9 % (4.4-11.3); NEUTROPHILS # (AUTO) 7.5 (2.1-6.9); PLATELET COUNT 135 x10e3/uL (140-360); RED BLOOD COUNT 4.06 x10e6/uL (4.3-5.7); RED CELL DISTRIBUTION WIDTH 17.4 % (11.7-14.4)
[2018-05-29] MEDS: HYDROCODONE/APAP 7.5MG-325MG 1 EA TAB PO SCH (05:43)
[2018-05-29 06:04] LABS: ALBUMIN 3.2 g/dL (3.5-5.0); ALBUMIN/GLOBULIN RATIO 1.2 (0.8-2.0); ANION GAP 14.5 mmol/L (8-16); CALCIUM 8.5 mg/dL (8.4-10.2); CHOL/HDL RATIO 2.8 (3.9-4.7); CREATININE, SERUM 1.82 mg/dL (0.72-1.25); POTASSIUM 4.5 mmol/L (3.5-5.1)
[2018-05-29 06:37] LABS: CREATINE KINASE MB 0.7 ng/mL (0-5.0)
--- NOTE | 2018-05-29 07:27 | NUR ---
patient resting in bed, AAOx3, Denies any pain, no distress noted, call light in reach bed alarm ON
[2018-05-29] MEDS: INSULIN LISPRO 100 UNIT/1 ML 3ML VIAL SQ SCH ×4 (07:46→21:02)
[2018-05-29] MEDS: ASPIRIN 81 MG ENTERIC COATED PO SCH (08:13)
[2018-05-29] MEDS: LOSARTAN POTASSIUM 25 MG TAB PO SCH (08:14)
[2018-05-29] MEDS: DULOXETINE HCL 30 MG DELAYED RELEASE PO SCH (08:14)
[2018-05-29] MEDS: TERAZOSIN HCL 1 MG CAP PO SCH ×2 (08:14→16:40)
[2018-05-29] MEDS: FENOFIBRIC ACID 135 MG PO SCH (08:14)
[2018-05-29] MEDS ORDERED: HYDROCODONE/APAP 7.5MG-325MG 1 EA TAB PO PRN (11:30)
[2018-05-29] MEDS: AZITHROMYCIN 250MG/NS 100 ML 100 ML IV SCH (16:13)
[2018-05-29] MEDS: LEVOFLOXACIN 250MG/D5W 50ML 50 ML IV SCH (17:22)
--- NOTE | 2018-05-29 18:05 | NUR ---
patient resting in bed, Alert with no distress, tolerated with dinner, bed alarm on , call light in reach
--- NOTE | 2018-05-29 19:00 | NUR ---
received report from day nurse. patient is resting comfortably in the bed. bed is in the lowest position and call quintanilla is within reach. will continue to monitor patient.
[2018-05-29] MEDS: INSULIN DETEMIR 100 UNIT/ML PEN SQ SCH (21:00)
[2018-05-30] VITALS: BP 160/70
[2018-05-30] MEDS: FAMOTIDINE 20 MG/2 ML VIAL IV SCH ×2 (01:51→13:28)
[2018-05-30 04:00] VITALS: BP 163/77
--- NOTE | 2018-05-30 07:06 | NUR ---
report given to day nurse. patient is resting comfortably in bed. bed is in lowest position and call quintanilla is within reach.
[2018-05-30 07:40] VITALS: BP 202/88
[2018-05-30 08:17] VITALS: BP 202/88
[2018-05-30] MEDS: TERAZOSIN HCL 1 MG CAP PO SCH ×2 (08:20→16:15)
[2018-05-30] MEDS: ASPIRIN 81 MG ENTERIC COATED PO SCH (08:20)
[2018-05-30] MEDS: INSULIN LISPRO 100 UNIT/1 ML 3ML VIAL SQ SCH ×3 (08:20→17:30)
[2018-05-30] MEDS: DULOXETINE HCL 30 MG DELAYED RELEASE PO SCH (08:20)
[2018-05-30] MEDS: LOSARTAN POTASSIUM 25 MG TAB PO SCH (08:20)
[2018-05-30] MEDS: FENOFIBRIC ACID 135 MG PO SCH (08:49)
[2018-05-30 11:56] VITALS: BP 167/75
[2018-05-30 15:49] VITALS: BP 190/87
[2018-05-30] MEDS: AZITHROMYCIN 250MG/NS 100 ML 100 ML IV SCH (16:15)
--- NOTE | 2018-05-30 18:35 | NUR ---
discharge instructions given to patient and . Patient and verbalized understanding. IV discontinued at this time, catheter in tact and small dressing applied. Patient to be escorted out in wheelchair to personal auto for to drive home.
== END 2018-05-30 18:37 | disposition home or self-care (01) ==
LOC: ER 10:22 → ERHOLD 13:54 → IMCU 15:22
PROVIDERS: ADMIT Internal Medicine Medical Oncology; ATTEND Internal Medicine Medical Oncology
DX: R55 Syncope and collapse (principal); I10 Essential (primary) hypertension; N20.0 Calculus of kidney; I25.10 Atherosclerotic heart disease of native coronary artery without angina pectoris; E78.5 Hyperlipidemia, unspecified; E11.42 Type 2 diabetes mellitus with diabetic polyneuropathy; Z79.4 Long term (current) use of insulin; Z79.82 Long term (current) use of aspirin; Z85.038 Personal history of other malignant neoplasm of large intestine; Z88.0 Allergy status to penicillin; Z95.1 Presence of aortocoronary bypass graft
CPT/HCPCS: 36415 ×3; 70450; 71045; 80053 ×2; 80061; 81001; 82550 ×2; 82553 ×2; 82948 ×3; 83518; 83605; 83690; 83735; 83880; 84443; 84484 ×2; 85025 ×2; 85610; 85730; 87040; 87070; 87086; 87400; 93005; 93306; 99284; G0378 ×3; J1956 ×2

== ENCOUNTER 2019-05-30 11:57 | Inpatient (IN) | payer MEDICARE, BC ==
[~2019-05-30] VITALS: Ht 177.8 cm; Wt 110.7 kg
[~2019-05-30 11:57] MED LIST changes: +LOSARTAN POTASS25 MG PO; +NITROGLYCERIN0.4 MG SL; +NORCO 7.5-3251 EACH PO; +TYLENOL WITH C1 EACH PO
[2019-05-30] MEDS ORDERED: SODIUM CHLORIDE 0.9% 1000ML 1,000 ML IV STA (13:00)
[2019-05-30 13:43] LABS: BASOPHILS % 0.4 % (0.0-1.0); EOSINOPHILS # (AUTO) 0.1 (0.0-0.4); EOSINOPHILS % 1.3 % (0.0-6.0); HEMATOCRIT 43.6 % (38.2-49.6); HEMOGLOBIN 14.2 g/dL (14.0-18.0); LYMPHOCYTES # (AUTO) 1.3 (1.0-3.2); LYMPHOCYTES % 18.7 % (18.0-39.1); MEAN CORPUSCULAR HEMOGLOBIN 28.7 pg (28-32); MEAN CORPUSCULAR HGB CONC 32.6 g/dL (31-35); MEAN CORPUSCULAR VOLUME 88.3 fL (81-99); MONOCYTES # (AUTO) 0.8 (0.2-0.8); MONOCYTES % 11.2 % (4.4-11.3); NEUTROPHILS # (AUTO) 4.6 (2.1-6.9); NEUTROPHILS % 67.7 % (38.7-80.0); PLATELET COUNT 198 x10e3/uL (140-360); RED BLOOD COUNT 4.94 x10e6/uL (4.3-5.7); RED CELL DISTRIBUTION WIDTH 15.1 % (11.7-14.4)
[2019-05-30 13:53] LABS: CLARITY,URINE CLEAR (CLEAR); COLOR,URINE YELLOW (YELLOW); LEUKOCYTE ESTERASE ,URINE NEGATIVE (NEGATIVE); NITRITE,URINE NEGATIVE (NEGATIVE)
[2019-05-30 13:54] LABS: BILIRUBIN,URINE NEGATIVE (NEGATIVE); KETONES,URINE TRACE (NEGATIVE); PROTEIN,URINE DIPSTICK NEGATIVE (NEGATIVE); URINE UROBILINOGEN 0.2 mg/dL (0.2 - 1)
[2019-05-30 13:58] LABS: INR 1.06
[2019-05-30 13:59] LABS: PARTIAL THROMBOPLASTIN TIME 34.9 seconds (23.8-35.5)
--- NOTE | 2019-05-30 14:02 | Diagnostic Imaging Report ---
CT BRAIN WO HISTORY: Altered mental status COMPARISON: Head CT 05/28/[address] dated 01/20/2011 Technique: Noncontrast axial scans were obtained from skull base to the vertex. Coronal and sagittal reconstructions obtained from the axial data. One or more of the following dose reduction techniques were used: Automated exposure control, adjustment of the mA and/or kV according to patient size, and/or utilization of iterative reconstruction technique. Beam hardening artifacts obscure some details. DISCUSSION: Scalp/Skull: Stable diffuse calvarial expansion has not significantly changed. Associated basilar impression is unchanged; the odontoid process continues to abut the cervicomedullary junction with foramen magnum crowding. Brain sulci: Mildly prominent. Ventricles: Compensatory dilatation. Extra-axial spaces: No masses or fluid collections. Carotid siphon calcifications are present. Parenchyma: Mild bilateral deep white matter hypodensity is likely chronic microvascular ischemic change. Otherwise, no masses, hemorrhage, or large vascular territory acute infarct. Dural sinuses: No abnormal densities. Sellar/Suprasellar region: Intact. Skull base: Intact. Incidental findings: Bilateral ocular lens replacement. IMPRESSION: 1. No acute intracranial abnormalities. 2. Mild supratentorial chronic microvascular ischemic change. Mild generalized cerebral volume loss. 3. Unchanged diffuse calvarial thickening, which could be seen in Paget's disease. Associated unchanged basilar impression; the odontoid process continues to abut the cervicomedullary junction with foramen magnum crowding. Signed by: Dr. Carlos Munoz M.D. on 05/30/2019 1:59 PM
[2019-05-30 14:03] LABS: ALBUMIN 3.5 g/dL (3.5-5.0); ALBUMIN/GLOBULIN RATIO 1.2 (0.8-2.0); ANION GAP 14.7 mmol/L (8-16); CALCIUM 9.6 mg/dL (8.4-10.2); CREATININE, SERUM 1.16 mg/dL (0.72-1.25); MAGNESIUM 1.7 MG/DL (1.3-2.1); POTASSIUM 3.7 mmol/L (3.5-5.1)
[2019-05-30 14:06] LABS: BACTERIA,URINE RARE /HPF; EPITHELIAL CELLS,URINE FEW /LPF; HYALINE CASTS 0-1 (0-1)
[2019-05-30 14:07] LABS: MUCUS,URINE RARE (RARE); STREPTOCOCCUS GRP A ANTIGEN NEGATIVE (NEGATIVE)
[2019-05-30 14:14] LABS: CREATINE KINASE MB 1.1 ng/mL (0-5.0); INFLUENZAE A&B ANTIGEN (RAPID) NEGATIVE (NEGATIVE)
[2019-05-30] MEDS ORDERED: SODIUM CHLORIDE 0.9% 1000ML 1,000 ML IV ONE (14:15)
[2019-05-30] MEDS ORDERED: VANCOMYCIN 1GM/NS 250 ML 250 ML IV ONE ×2 (14:15→17:00)
[2019-05-30] MEDS ORDERED: CEFEPIME 2 GM/NS 0.9% 100 ML 100 ML IV ONE (14:15)
--- NOTE | 2019-05-30 14:22 | Diagnostic Imaging Report ---
EXAMINATION: CHEST SINGLE (PORTABLE) INDICATION: Altered mental status COMPARISON: Chest radiograph 05/28/2018 FINDINGS: LINES/TUBES:EKG leads overlie the chest. LUNGS:The lungs are moderately inflated. There is perihilar fullness and indistinctness of the pulmonary vasculature. Mild bibasilar patchy opacities. PLEURA:No pleural effusion or pneumothorax. MEDIASTINUM:Cardiomediastinal silhouette is stably enlarged. Atherosclerotic calcifications of the thoracic aorta. BONES/SOFT TISSUES:No acute osseous injury. Sternotomy wires in place. ABDOMEN:No free air under the diaphragm. IMPRESSION: Cardiomegaly and pulmonary interstitial edema. Signed by: Santiago Chris MD on 05/30/2019 2:20 PM
[2019-05-30] MEDS: SODIUM CHLORIDE 0.9% 1000ML 1,000 ML IV SCH (15:59)
[2019-05-30] MEDS ORDERED: LORAZEPAM INJ 2 MG/ML VIAL IM NR (18:15)
[2019-05-30] MEDS ORDERED: LORAZEPAM INJ 2 MG/ML VIAL ONE (18:17)
[2019-05-30] MEDS: ZIPRASIDONE 20 MG VIAL IM PRN (18:22)
[2019-05-30] MEDS: HYDROMORPHONE 1MG/1ML INJ IV PRN (21:10)
[2019-05-30 21:20] VITALS: BP 189/94
[2019-05-30 21:40] VITALS: BP 189/94
[2019-05-31] VITALS (7 sets, daily range): BP systolic 146–184; BP diastolic 80–86
[2019-05-31] MEDS: HYDROMORPHONE 1MG/1ML INJ IV PRN ×4 (02:45→16:48)
[2019-05-31] MEDS: SODIUM CHLORIDE 0.9% 1000ML 1,000 ML IV SCH ×2 (02:45→16:47)
[2019-05-31] MEDS ORDERED: HYDRALAZINE HCL 20 MG/ML VIAL IV STA (04:21)
[2019-05-31] MEDS ORDERED: HYDRALAZINE HCL 20 MG/ML VIAL IV PRN (04:30)
[2019-05-31] MEDS ORDERED: CLONIDINE HCL 0.1 MG/24 HR 1 EA PATCH TOP SCH (04:30)
[2019-05-31] MEDS: LORAZEPAM INJ 2 MG/ML VIAL IV PRN ×3 (04:49→20:58)
[2019-05-31 05:32] LABS: BASOPHILS % 0.3 % (0.0-1.0); EOSINOPHILS # (AUTO) 0.1 (0.0-0.4); EOSINOPHILS % 1.1 % (0.0-6.0); HEMOGLOBIN 13.4 g/dL (14.0-18.0); LYMPHOCYTES # (AUTO) 0.9 (1.0-3.2); LYMPHOCYTES % 12.3 % (18.0-39.1); MEAN CORPUSCULAR HEMOGLOBIN 29.1 pg (28-32); MEAN CORPUSCULAR HGB CONC 32.7 g/dL (31-35); MEAN CORPUSCULAR VOLUME 88.9 fL (81-99); MONOCYTES # (AUTO) 0.5 (0.2-0.8); MONOCYTES % 7.1 % (4.4-11.3); NEUTROPHILS % 78.7 % (38.7-80.0); PLATELET COUNT 161 x10e3/uL (140-360); RED BLOOD COUNT 4.61 x10e6/uL (4.3-5.7); RED CELL DISTRIBUTION WIDTH 15.3 % (11.7-14.4)
[2019-05-31 06:01] LABS: CREATINE KINASE MB 1.2 ng/mL (0-5.0)
[2019-05-31 06:29] LABS: ANION GAP 17.2 mmol/L (8-16); CALCIUM 8.5 mg/dL (8.4-10.2); CHOL/HDL RATIO 4.1 (3.9-4.7); CREATININE, SERUM 1.18 mg/dL (0.72-1.25); POTASSIUM 4.2 mmol/L (3.5-5.1)
--- NOTE | 2019-05-31 07:30 | NUR ---
Received patient this morning and alert but altered mental status, groans with reposition, eyes closed in bed, no resp distress, call light within reach, will monitor. Report received and rounds completed.
--- NOTE | 2019-05-31 09:38 | NUR ---
Patient with altered mentation, attempting to get OOB and notified maintenance on repairing bed alarms, frequent checks in place at this time. Call to for updated list of medications, will be coming in with medications.
[2019-05-31] MEDS ORDERED: ULTRAM 50MG50 MG PO (11:02)
[2019-05-31] MEDS ORDERED: GABAPENTIN300 MG PO (11:02)
[2019-05-31] MEDS ORDERED: NOVOLOG100 UNIT/1 SC (11:02)
[2019-05-31] MEDS ORDERED: LEVEMIR100 UNIT/1 SC ×2 (11:04)
--- NOTE | 2019-05-31 11:11 | NUR ---
Third switch of bed for bed alarm problems and appears still not working, maintenance called. Family in the room now with patient.
--- NOTE | 2019-05-31 11:16 | NUR ---
Family reported patient eats well regular food at home and at his baseline, he is usually very coherent and oriented and that his presentation at this time is different.
--- NOTE | 2019-05-31 12:24 | NUR ---
Patient very anxious, confused and altered mentation, medicated with Ativan PRN, will monitor.
--- NOTE | 2019-05-31 13:12 | NUR ---
Rounds by Attending and orders for bedside swallow eval, if patient starts eating, orders Diabetic diet if ok with speech and Low dose ACHS.
[2019-05-31 14:21] LABS: CREATINE KINASE MB 1.3 ng/mL (0-5.0)
--- NOTE | 2019-05-31 15:13 | NUR ---
Patient seen by speech and patient not able to coordinate chewing and swallowing process well, recommends patient remains NPO and to eval again tomorrow.
--- NOTE | 2019-05-31 15:53 | NUR ---
Patient has been removing telemetry and not keeping it on. Call to attending's office to have it d/c'd but will be rounding again.
--- NOTE | 2019-05-31 19:00 | NUR ---
RECEIVED PATIENT IN BEDSIDE SHIFT REPORT. PATIENT FIDGETING, PULLING AT TELE PADS, GOWN AND BEDDING OFF PATIENT. PATIENT A&OX1 TO SELF. NO PAIN REPORTED OR OBSERVED. BED ALARM ACTIVE. WILL CONTINUE TO MONITOR PATIENT VERY CLOSELY.
--- NOTE | 2019-05-31 19:09 | NUR ---
Rounds completed, patient in bed, alarms in place, still restless and confused.
[2019-05-31] MEDS: FUROSEMIDE INJ 10 MG/ML 4 ML VIAL IV SCH (20:37)
--- NOTE | 2019-05-31 21:00 | NUR ---
PATIENT ATTEMPTING TO GET OUT OF BED, PULLING AT IV, CONTINUES TO FIDGET WITH BEDDING, NOTED TO BE SCRATCHING SKIN ON ARM. ADMINISTERED ATIVAN AT THIS TIME. WILL CONTINUE TO MONITOR CLOSELY.
--- NOTE | 2019-05-31 21:25 | NUR ---
SPOKE WITH MD Marisa PANTOJA, ORDERS TO DC TELE D/T PATIENT CONTINUOUSLY REMOVING IT, IV ABX ORDERED TO COVER PATIENT UNTIL URINE CULTURE COMES BACK.
[2019-05-31] MEDS: ZIPRASIDONE 20 MG VIAL IM PRN (22:49)
--- NOTE | 2019-05-31 22:50 | NUR ---
PATIENT CONTINUES TO ATTEMPT TO CLIMB OUT OF BED WHILE INCREDIBLY WEAK, NOTED TO BE PICKING AT SKIN, VERY AGITATED, DESPITE ATIVAN ADMINISTRATION. ADMINISTERED GEODON IM AT THIS TIME. BED ALARM ACTIVE. WILL MONITOR CLOSELY.
[2019-05-31] MEDS: CEFEPIME 1GM/NS 0.9% 50 ML 50 ML IV SCH (22:54)
[2019-06-01] VITALS (8 sets, daily range): BP systolic 130–168; BP diastolic 64–81
[2019-06-01] MEDS: HYDROMORPHONE 1MG/1ML INJ IV PRN ×3 (02:10→20:44)
[2019-06-01] MEDS: SODIUM CHLORIDE 0.9% 1000ML 1,000 ML IV SCH (07:00)
--- NOTE | 2019-06-01 07:24 | NUR ---
Patient a/ox3, no distress, AMS and in bed, bed alarms in place, no distress, antibiotics initiated, will monitor.
[2019-06-01] MEDS: FUROSEMIDE INJ 10 MG/ML 4 ML VIAL IV SCH ×2 (08:18→20:00)
[2019-06-01] MEDS: CEFEPIME 1GM/NS 0.9% 50 ML 50 ML IV SCH ×2 (10:00→22:09)
[2019-06-01] MEDS: ONDANSETRON HCL INJ 2MG/ML 2ML 2 MG/ML VIAL IV PRN (16:26)
--- NOTE | 2019-06-01 19:00 | NUR ---
RECEIVED PATIENT IN BEDSIDE SHIFT REPORT. PATIENT IS NOW A&OX2-3; KNOWS HIS NAME AND THAT HE IS AT [facility], OCCASIONALLY ORIENTED TO TIME. PATIENT IS STILL VERY PHYSICALLY AGITATED, ASKING FOR SUPPER AND WATER. EXPLAINED TO PATIENT HIS NPO STATUS TO REMAIN FREE OF ASPIRATION/CHOKING. PATIENT UNABLE TO UNDERSTAND REASONING. PATIENT TRYING TO GET OUT OF BED, BED ALARM ACTIVE. EXPLAINED TO PATIENT HE IS TOO WEAK TO STAND, UNABLE TO UNDERSTAND THIS WELL. WILL MONITOR VERY CLOSELY. BED LOCKED IN LOWEST POSITION, SIDE RAILS UPX2, CALL LIGHT IN REACH.
[2019-06-02] VITALS (8 sets, daily range): BP systolic 133–159; BP diastolic 67–84
[2019-06-02] MEDS: SODIUM CHLORIDE 0.9% 1000ML 1,000 ML IV SCH ×2 (02:56→08:45)
[2019-06-02] MEDS: HYDROMORPHONE 1MG/1ML INJ IV PRN ×3 (05:12→21:35)
[2019-06-02] MEDS: CEFEPIME 1GM/NS 0.9% 50 ML 50 ML IV SCH ×2 (09:26→20:49)
[2019-06-02] MEDS: FUROSEMIDE INJ 10 MG/ML 4 ML VIAL IV SCH ×2 (09:26→20:48)
--- NOTE | 2019-06-02 09:28 | NUR ---
Patient presenting with chorea like movements, requesting for meals and appears more coherent than the past days. Rounding at this time by attending.
--- NOTE | 2019-06-02 09:38 | NUR ---
Consult to Dr. Shaji Lara Neurology and calling at this time.
[2019-06-02] MEDS: KETOROLAC TROMETHAMINE 30 MG/ML VIAL IV SCH ×2 (09:46→17:25)
--- NOTE | 2019-06-02 10:34 | NUR ---
Rounds by Dr. Girard, neurology and orders in place. Patient having MBS test at this time
--- NOTE | 2019-06-02 10:47 | NUR ---
Patient alert and responsive, BMS done and speech therapist states patient not aspirating but can start with mechanical soft diet and chopped meats. Orders in place per attending. Will monitor.
[2019-06-02 11:14] LABS: THYROID STIMULATING HORMONE 0.871 uIU/mL (0.350-4.940)
[2019-06-02] MEDS: CARBIDOPA/LEVODOPA 10/100 TAB PO SCH (11:34)
[2019-06-02] MEDS: AMANTADINE HCL 100 MG CAP PO SCH (11:34)
[2019-06-02] MEDS ORDERED: DEXTROSE 50% SYRINGE 50 ML IV PRN (12:30)
[2019-06-02] MEDS: LORAZEPAM INJ 2 MG/ML VIAL IV PRN ×2 (16:00→22:24)
--- NOTE | 2019-06-02 16:00 | NUR ---
Patient with a lot of chorea non-purposeful movements and medicated with Ativan to patient can have EEG done and was successfully completed. Patient seen by PT, OOB but a lot of swaying and could not ambulate, recommending SNF.
[2019-06-02] MEDS: INSULIN REGULAR, HUMAN 100 UNIT/1 ML 3ML VIAL SQ SCH ×2 (16:30→20:48)
--- NOTE | 2019-06-02 16:53 | Diagnostic Imaging Report ---
Modified barium swallow, 06/02/2019. History: Altered mental status. Fluoro time: 1.4 min. Dose: 16.9 mGy ([place]STON) Discussion: Fluoroscopy was performed by solar technician. A radiologist was not present for exam. Fluoroscopic observation and imaging of the oral cavity, oropharynx, and hypopharynx was performed in the lateral projection during swallowing of liquids and solids, administered by speech pathology. See speech pathologist report for findings. Signed by: Kamari Pierre on 06/02/2019 4:50 PM
--- NOTE | 2019-06-02 19:00 | NUR ---
RECEIVED PATIENT IN BEDSIDE SHIFT REPORT. PATIENT IN BED AT THIS TIME. A&OX2-3. CONTINUES UNCOORDINATED MOVEMENTS WHICH PATIENT STATES HE CANNOT CONTROL. SKIN TEAR NOTED TO L ELBOW D/T ARM MOVEMENTS AND HITTING ELBOW ON SIDE RAIL. CLEANSED WITH NS AND DRESSED WITH STERILE 4X4 AND TEGADERM DRESSING. IV TO R UA ASYMPTOMATIC, INTACT, AND PATENT, RUNNING NS AT 50 ML/HR. PATIENT'S SPEECH CONTINUES TO BE SLURRED, BUT MOSTLY COMPREHENSIBLE. PATIENT'S DIAPER IS DRY AT THIS TIME. WILL MONITOR VERY CLOSELY. BED LOCKED IN LOWEST POSITION, SIDE RAILS UPX2, CALL LIGHT IN REACH.
--- NOTE | 2019-06-02 19:04 | NUR ---
Report given to on coming nurse and rounds completed. Call light within reach and safety maintained.
--- NOTE | 2019-06-02 19:11 | Consultation ---
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 HISTORY OF PRESENT ILLNESS: Mr. Glenroy Oliva is an elderly 88-year-old male, primarily right-handed, who presented with UTI, delirium and confusion and as the UTI and delirium resolved, he started developing gross choreiform movements affecting bilateral upper extremities, bilateral lower extremities. His speech is slurred, he is somewhat disoriented and is not able to give much of a history, although he reportedly said this is not normal for him and that he cannot really control the movements. REVIEW OF SYSTEMS: He is confused. Denies headache. Denies chest pain. Denies shortness of breath. Endorses abnormal dystonic and choreiform movements in the upper and lower extremities. Otherwise, 14-point review of systems negative. PHYSICAL EXAMINATION: VITAL SIGNS: He is afebrile, temperature is 98.8. His heart rate is 77 and regular. His blood pressure is 140/72. HEENT: His extraocular muscles are intact. His face is symmetric. He does have some tardive dyskinetic type of movement to his tongue. NECK: Midline and nonrigid, however, he does again have these recurrent movements that appear choreiform with his neck and upper extremities and lower extremities. ABDOMEN: Soft and nontender. PULMONARY: Clear. CARDIOVASCULAR: Regular rate and rhythm. EXTREMITIES: There is no significant edema. No rashes noted in the axillary area. Reflexes are difficult to elicit with movement. ASSESSMENT AND PLAN: The patient comes to my attention for his choreiform movements associated with urinary tract infection, possibly toxic metabolic in nature. We are going to stop his antipsychotics were initiated. 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 We will get an EEG and initiate amantadine for subcortical motor dysfunction and . MD RIVER GRISSOM/YASMANYL /[id number]
--- NOTE | 2019-06-02 22:25 | NUR ---
PATIENT CONTINUES TO MOVE CONSTANTLY WITHOUT CONTROL, HIT L ELBOW ON SIDE RAIL AND RECEIVED SKIN TEAR AGAIN. PULLING AT IV SITE. MEDICATED PATIENT WITH PRN AGITATION MEDICATION TO PREVENT PATIENT FROM INJURING SKIN FURTHER. WILL MONITOR.
[2019-06-03] VITALS (8 sets, daily range): BP systolic 137–181; BP diastolic 68–93
[2019-06-03] MEDS: KETOROLAC TROMETHAMINE 30 MG/ML VIAL IV SCH ×5 (00:14→23:14)
[2019-06-03] MEDS: HYDROMORPHONE 1MG/1ML INJ IV PRN ×3 (04:42→20:56)
[2019-06-03 05:54] LABS: BASOPHILS % 0.3 % (0.0-1.0); EOSINOPHILS # (AUTO) 0.1 (0.0-0.4); EOSINOPHILS % 2.1 % (0.0-6.0); HEMATOCRIT 43.5 % (38.2-49.6); HEMOGLOBIN 14.3 g/dL (14.0-18.0); LYMPHOCYTES # (AUTO) 1.3 (1.0-3.2); LYMPHOCYTES % 19.2 % (18.0-39.1); MEAN CORPUSCULAR HGB CONC 32.9 g/dL (31-35); MEAN CORPUSCULAR VOLUME 88.2 fL (81-99); MONOCYTES # (AUTO) 0.9 (0.2-0.8); MONOCYTES % 13.1 % (4.4-11.3); NEUTROPHILS # (AUTO) 4.4 (2.1-6.9); NEUTROPHILS % 64.9 % (38.7-80.0); PLATELET COUNT 185 x10e3/uL (140-360); RED BLOOD COUNT 4.93 x10e6/uL (4.3-5.7); RED CELL DISTRIBUTION WIDTH 15.2 % (11.7-14.4)
[2019-06-03 06:14] LABS: ANION GAP 20.4 mmol/L (8-16); CALCIUM 9.4 mg/dL (8.4-10.2); CREATININE, SERUM 1.46 mg/dL (0.72-1.25); POTASSIUM 3.4 mmol/L (3.5-5.1)
--- NOTE | 2019-06-03 06:45 | NUR ---
received report from previous shift, pt in bed moving constantly in bed, unable to explain why he cannot lay still. bed alarm on
[2019-06-03] MEDS: SODIUM CHLORIDE 0.9% 1000ML 1,000 ML IV SCH ×2 (08:22→22:05)
[2019-06-03] MEDS: INSULIN REGULAR, HUMAN 100 UNIT/1 ML 3ML VIAL SQ SCH ×4 (08:23→20:44)
[2019-06-03] MEDS: FUROSEMIDE INJ 10 MG/ML 4 ML VIAL IV SCH ×2 (08:24→20:48)
[2019-06-03] MEDS: CARBIDOPA/LEVODOPA 10/100 TAB PO SCH ×2 (08:24→12:32)
[2019-06-03] MEDS: AMANTADINE HCL 100 MG CAP PO SCH ×2 (08:24→17:56)
--- NOTE | 2019-06-03 08:59 | NUR ---
s: continues to have dystonic choreoform movements V: 96.6 148/78 69 exam: eomi perrl speech clear no aphasia +torticolis no meningismus trachea midline rrr cta abd soft continueous choreoform movements arms and legs no tremor a/p acute dystonic reaction vs metabolic chorea no response to dopamine but continue x 1 more day. start benadrly 50 mg iv x bid benzotropine 1mg po bid
[2019-06-03] MEDS: CEFEPIME 1GM/NS 0.9% 50 ML 50 ML IV SCH ×2 (09:46→20:48)
--- NOTE | 2019-06-03 10:20 | NUR ---
PT WITH AMS, UNABLE TO PARTICIPATE IN DPA
[2019-06-03] MEDS: BENZTROPINE MESYLATE 1 MG TAB PO SCH ×2 (11:00→17:56)
--- NOTE | 2019-06-03 15:45 | NUR ---
pt up in chair by physical therapy, family at bedside, pt not agitated at time
[2019-06-03] MEDS: ONDANSETRON HCL INJ 2MG/ML 2ML 2 MG/ML VIAL IV PRN (15:58)
[2019-06-03] MEDS: DIPHENHYDRAMINE HCL INJ 50 MG/ML VIAL IV PRN ×2 (15:58→23:14)
--- NOTE | 2019-06-03 18:49 | NUR ---
report given to oncoming shift, pt resting in bed
[2019-06-03] MEDS: LORAZEPAM INJ 2 MG/ML VIAL IV PRN (20:56)
[2019-06-04] VITALS (9 sets, daily range): BP systolic 139–172; BP diastolic 84–95
[2019-06-04] MEDS: HYDROMORPHONE 1MG/1ML INJ IV PRN ×2 (02:19→10:25)
[2019-06-04] MEDS: SODIUM CHLORIDE 0.9% 1000ML 1,000 ML IV SCH ×2 (04:17→15:48)
[2019-06-04 05:27] LABS: BASOPHILS # (AUTO) 0.1 (0.0-0.1); BASOPHILS % 0.8 % (0.0-1.0); EOSINOPHILS # (AUTO) 0.2 (0.0-0.4); EOSINOPHILS % 3.2 % (0.0-6.0); HEMATOCRIT 44.8 % (38.2-49.6); HEMOGLOBIN 14.1 g/dL (14.0-18.0); LYMPHOCYTES # (AUTO) 1.3 (1.0-3.2); LYMPHOCYTES % 21.7 % (18.0-39.1); MEAN CORPUSCULAR HEMOGLOBIN 28.7 pg (28-32); MEAN CORPUSCULAR HGB CONC 31.5 g/dL (31-35); MEAN CORPUSCULAR VOLUME 91.2 fL (81-99); MONOCYTES # (AUTO) 0.7 (0.2-0.8); NEUTROPHILS # (AUTO) 3.7 (2.1-6.9); NEUTROPHILS % 61.8 % (38.7-80.0); PLATELET COUNT 166 x10e3/uL (140-360); RED BLOOD COUNT 4.91 x10e6/uL (4.3-5.7); RED CELL DISTRIBUTION WIDTH 15.4 % (11.7-14.4)
[2019-06-04] MEDS: KETOROLAC TROMETHAMINE 30 MG/ML VIAL IV SCH ×3 (05:34→18:24)
[2019-06-04] MEDS: LORAZEPAM INJ 2 MG/ML VIAL IV PRN (05:34)
[2019-06-04 05:46] LABS: ANION GAP 19.3 mmol/L (8-16); CALCIUM 9.1 mg/dL (8.4-10.2); CREATININE, SERUM 1.37 mg/dL (0.72-1.25); POTASSIUM 3.3 mmol/L (3.5-5.1)
[2019-06-04] MEDS: CARBIDOPA/LEVODOPA 10/100 TAB PO SCH ×2 (08:00→08:49)
[2019-06-04] MEDS: INSULIN REGULAR, HUMAN 100 UNIT/1 ML 3ML VIAL SQ SCH ×2 (08:11→12:20)
[2019-06-04] MEDS: FUROSEMIDE INJ 10 MG/ML 4 ML VIAL IV SCH ×2 (08:12→20:42)
[2019-06-04] MEDS: BENZTROPINE MESYLATE 1 MG TAB PO SCH ×3 (08:41→16:48)
[2019-06-04] MEDS: AMANTADINE HCL 100 MG CAP PO SCH ×3 (08:41→16:48)
--- NOTE | 2019-06-04 08:55 | NUR ---
s: continues to have dystonic choreoform movements but they seem less pronoucned V: 96.6 142/76 72 exam: eomi perrl speech clear no aphasia +torticolis no meningismus trachea midline rrr cta abd soft continueous choreoform movements arms and legs no tremor a/p acute dystonic reaction vs metabolic chorea no response to dopamine but continue x 1 more day. start benadrly 50 mg iv x bid benzotropine 1mg po bid dc sinemet continue amantadine
[2019-06-04] MEDS: CEFEPIME 1GM/NS 0.9% 50 ML 50 ML IV SCH ×2 (10:24→21:46)
[2019-06-04] MEDS: INSULIN LISPRO 100 UNIT/1 ML 3ML VIAL SQ SCH ×3 (16:53→20:31)
[2019-06-04 16:56] LABS: FREE T4 (FREE THYROXINE) 1.24 ng/dL (0.8-1.8); THYROID STIMULATING HORMONE 0.053 uIU/mL (0.350-4.940)
--- NOTE | 2019-06-04 19:00 | NUR ---
Received patient from day nurse, patient is alert and oriented x 2.patient is stable at this time. safety and fall precautions maintained as per hospital protocol: bed in lowest position and locked, needed items beside bed and patient instructed to call at all times for help.
[2019-06-04] MEDS ORDERED: INSULIN GLARGINE 100 UNITS/ML VIAL SQ SCH (21:00)
--- NOTE | 2019-06-04 21:20 | Consultation ---
DATE OF CONSULTATION: 06/04/2019 Endocrine Consult[address] Patient of Dr. Titus Cedeno. HISTORY OF PRESENT ILLNESS: Thank you very much for referring this patient. This is an 88-year-old white male gentleman, who is referred to me for reason for evaluation of uncontrolled diabetes mellitus and altered mental status. The patient came to the hospital because of confusion, altered mental status, and has been evaluated by the Neurology group as well. He has history of colon cancer, kidney stones, coronary artery disease status post CABG, hypertension, hyperlipidemia. He takes combination of pills and insulin at home. During the hospital stay, his blood sugars have been elevated. The patient is a nonsmoker. No history of major strokes in the past. PHYSICAL EXAMINATION: GENERAL: Today, the patient is awake but slightly confused. VITAL SIGNS: His heart rate is around 78 and blood pressure 140/80 mmHg. HEENT EXAMINATION: Essentially unremarkable. Thyroid is palpable. Clinically, he is near euthyroid. CHEST: Bilateral vesicular breathing. He has mild bronchospasm. CARDIOVASCULAR: First and second heart sounds. There are no third or fourth heart sounds. Ejection systolic murmur is grade 2/6. 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 IMPRESSION: Diabetes mellitus type 2, uncontrolled with complications, altered mental status, agitation, rule out dementia, rule out cerebrovascular accident, hypertension, coronary artery disease, status post CABG. PLAN: At this time is to do a hemoglobin A1c, thyroid function tests, monitor his blood sugars closely, and start him on the Lantus insulin. Thanks again for referring this patient. I will follow this patient with you. MD UDAY Chung/MODL /[id number]
[2019-06-05] VITALS (9 sets, daily range): BP systolic 137–163; BP diastolic 65–106
[2019-06-05] MEDS: KETOROLAC TROMETHAMINE 30 MG/ML VIAL IV SCH ×2 (00:48→06:00)
[2019-06-05] MEDS: SODIUM CHLORIDE 0.9% 1000ML 1,000 ML IV SCH ×3 (01:00→21:00)
[2019-06-05 06:31] LABS: BASOPHILS % 0.7 % (0.0-1.0); EOSINOPHILS # (AUTO) 0.2 (0.0-0.4); EOSINOPHILS % 2.8 % (0.0-6.0); HEMATOCRIT 44.1 % (38.2-49.6); HEMOGLOBIN 14.5 g/dL (14.0-18.0); LYMPHOCYTES # (AUTO) 1.1 (1.0-3.2); LYMPHOCYTES % 17.8 % (18.0-39.1); MEAN CORPUSCULAR HGB CONC 32.9 g/dL (31-35); MEAN CORPUSCULAR VOLUME 88.2 fL (81-99); MONOCYTES # (AUTO) 0.6 (0.2-0.8); MONOCYTES % 10.2 % (4.4-11.3); NEUTROPHILS # (AUTO) 4.1 (2.1-6.9); NEUTROPHILS % 68.2 % (38.7-80.0); PLATELET COUNT 171 x10e3/uL (140-360); RED CELL DISTRIBUTION WIDTH 15.3 % (11.7-14.4)
[2019-06-05 06:40] LABS: ANION GAP 18.6 mmol/L (8-16); CREATININE, SERUM 1.4 mg/dL (0.72-1.25); POTASSIUM 3.6 mmol/L (3.5-5.1)
--- NOTE | 2019-06-05 07:00 | NUR ---
bedside shift report received pt in stable condition, r & l ac 20g no ss of infiltration noted, denies pain at this time, updated on poc voiced understanding, call light in reach will continue to monitor
--- NOTE | 2019-06-05 07:23 | NUR ---
Patient endorsed to next shift for continuity of care.
[2019-06-05] MEDS: INSULIN LISPRO 100 UNIT/1 ML 3ML VIAL SQ SCH ×7 (07:30→21:39)
[2019-06-05] MEDS: BENZTROPINE MESYLATE 1 MG TAB PO SCH (08:19)
[2019-06-05] MEDS: FUROSEMIDE INJ 10 MG/ML 4 ML VIAL IV SCH ×2 (08:19→21:40)
[2019-06-05] MEDS: CEFEPIME 1GM/NS 0.9% 50 ML 50 ML IV SCH ×2 (08:20→21:32)
[2019-06-05] MEDS: AMANTADINE HCL 100 MG CAP PO SCH (08:20)
--- NOTE | 2019-06-05 08:32 | NUR ---
no distress noted, meds given, bed low locked position bed alarm in place, call light in reach will continue to monitor
--- NOTE | 2019-06-05 08:42 | NUR ---
s: continues to have dystonic choreoform movements which seem to have largely abated V: 98.2 69 163/81 exam: eomi perrl speech dysarhtric no aphasia +torticolis no meningismus trachea midline rrr cta abd soft no apparent choreoform movements no tremor a/p acute dystonic reaction vs metabolic chorea no response to dopamine but continue x 1 more day. start benadrly 50 mg iv x bid dc benzotropine dc sinemet continue 50 bid outpt follow up for neurophysiology testing
[2019-06-05] MEDS ORDERED: AMANTADINE HCL 100 MG CAP PO SCH ×2 (09:00→17:00)
--- NOTE | 2019-06-05 12:03 | NUR ---
IV DILAUDID DC'D STARTED ON TORADOL 30MG IV Q 6 PRN PAIN SPOKE WITH DR Marisa PANTOJA REGARDING PLAN OF CARE HE STATES "WE STILL DON'T HAVE A DIAGNOSIS TO WHY HE IS ALTERED MENTAL STATUS" CM TO FOLLOW
[2019-06-05] MEDS ORDERED: KETOROLAC TROMETHAMINE 30 MG/ML VIAL IV PRN (12:15)
[2019-06-05] MEDS ORDERED: QUETIAPINE FUMARATE 25 MG TAB PO PRN (13:15)
[2019-06-05] MEDS ORDERED: HALOPERIDOL LACTATE 5 MG/ML VIAL IM PRN (13:15)
--- NOTE | 2019-06-05 14:34 | NUR ---
Nutrition Screen Note RD Recommendation for Physician: - Continue current diet Plan of Care: RD following, monitoring for tolerance and adequacy Nutrition reason for involvement: LOS Primary Diagnose(s): AMS, UTI PMH: DM2, HTN, CAD, CABG, colon cancer, HLD Ht: 70 in Wt: 244 lb BMI: 35 kg/m2 IBW: [address] Assessment: (06/05) 88 YOM admitted for AMS and UTI, seen today for LOS. Pt sleeping at time of visit, unable to wake, and no family present. Pt eating 100% of meals per chart. No GI distress reported per RN, LBM 06/05. Chart reviewed. Labs and meds reviewed. Will monitor and continue to follow. Current Diet: 1800 ADA, mechanical soft Malnutrition Evaluation (06/05/19) The patient does not meet criteria for a specified degree of malnutrition at this time. Will re-evaluate at follow-up as appropriate. Diet Education Needs Assessment: Diet education not indicated. Diet tolerance: tolerating po Nutrition Care Level: Low Signed: Stacy Boyd RD, LD, [facility]
[2019-06-05] MEDS: KETOROLAC TROMETHAMINE 30 MG/ML VIAL IM PRN (18:10)
--- NOTE | 2019-06-05 19:03 | NUR ---
WALKING ROUNDS PERFORMED, RECEIVED PT LAYING SEMI FOWLERS IN BED, RESTING, AWAKENED EASY. PT IS AAOX2, RR EVEN AND NON-LABORED, ON ROOM AIR. NO S/SX OF DISTRESS NOTED. LEFT PT LAYING SEMI FOWLERS IN BED, BED IN LOW LOCKED POSITION, SIDE RAILS UPX3, CALL LIGHT AND PHONE WITHIN REACH. BED ALARM ACTIVATED ZONE 1.
--- NOTE | 2019-06-05 20:05 | Consultation ---
DATE OF CONSULTATION: 06/05/2019 Psychiatric Consultation The patient is evaluated and events noted. REASON FOR CONSULTATION: To evaluate the patient's psychosis. HISTORY OF PRESENT ILLNESS: The patient is an 88-year-old male admitted to the hospital for altered mental status and UTI. Psychiatric consultation is called to evaluate the patient's psychosis. As per the medical record, the patient has history of colon cancer, kidney stone, coronary artery disease status post CABG, hypertension, hyperlipidemia. Upon evaluation today, the patient is found to be in the room lying in the bed. He is calm at this time. He is oriented to self and place, but not to year. He thinks it is 1999. He has some difficulty hearing the questions. He is wearing hearing aid. The patient is able to correctly name the current president. He reports having frustration at times due to being in the hospital, but denies any anxiety. He denies suicidal or homicidal ideation. Denies any hallucination. He is not paranoid. He denies problem with sleep or appetite issues. As per nurse, the patient has been calm and cooperative. No agitation. He did get p.r.n. IV Ativan yesterday morning at 5 a.m. PAST PSYCHIATRIC HISTORY: The patient denies past psychiatric history. He denies past suicide attempts. He denies alcohol or drug use. FAMILY HISTORY: Denies. SOCIAL HISTORY: The patient lives with his . MENTAL STATUS EXAM: The patient is an elderly male, obese. He is alert, awake, and oriented to self and place, but not the year. He is calm at this time. Mood is dysphoric. Affect is blunt. Psychomotor state is passive. Denies suicidal or homicidal ideation. Denies any hallucination. Thought process is concrete. No delusion elicited. Insight and judgment are limited to fair. Memory appears to be grossly intact. CURRENT MEDICATIONS: 1. Insulin. 2. Cefepime. 3. Lasix. 4. Ativan 0.5 IV q.6 hours as needed. 5. Benadryl p.r.n. IV. 6. Zofran. 7. Hydralazine. 8. Clonidine. 9. Sodium chloride. 10. Ketorolac. 11. Dextrose. CURRENT LABS: WBC 6.07, RBC 5, hemoglobin 14.5, hematocrit 44.1, platelets 171. Sodium 139, potassium 3.6, chloride 98, CO2 of 26, BUN 31, creatinine 1.4. ASSESSMENT: 1. Unspecified psychosis. 2. Rule out dementia. PLAN: 1. To continue Ativan p.r.n. IV. 2. Add Seroquel 25 mg p.o. q.6 hours as needed. 3. Add Haldol 2 mg IM q.6 hours as needed. 4. Monitor for mood and psychosis. Thank you for this consultation and we will continue to follow up with the patient during his hospital stay. Dictated by Obdulia Nichole PA-C Pinky Beck MD QTV/MODL /[id number]
[2019-06-05] MEDS ORDERED: INSULIN GLARGINE 100 UNITS/ML VIAL SQ SCH (21:00)
--- NOTE | 2019-06-05 22:00 | NUR ---
IV RT UPPER ARM D/C WITH CATHETER INTACT. PRESSURE AND DRESSING TO SITE. IV LEFT AC D/C WITH CATHETER INTACT. PRESSURE AND DRESSING TO SITE. PT TOLERATED PROCEDURE WELL.
[2019-06-06] VITALS: BP 173/84
[2019-06-06] MEDS: KETOROLAC TROMETHAMINE 30 MG/ML VIAL IM PRN ×3 (00:44→16:03)
[2019-06-06] MEDS: DIPHENHYDRAMINE HCL INJ 50 MG/ML VIAL IV PRN (00:56)
[2019-06-06 04:00] VITALS: BP 170/81
[2019-06-06] MEDS: SODIUM CHLORIDE 0.9% 1000ML 1,000 ML IV SCH (05:59)
[2019-06-06] MEDS: INSULIN LISPRO 100 UNIT/1 ML 3ML VIAL SQ SCH ×2 (07:30)
[2019-06-06 08:00] VITALS: BP 181/83
--- NOTE | 2019-06-06 08:05 | NUR ---
PT ASLEEP AROUSAL TO TOUCH, RESP EVEN NO DISTRESS NOTED, CALL LIGHT IN REACH.
[2019-06-06] MEDS: FUROSEMIDE INJ 10 MG/ML 4 ML VIAL IV SCH (08:35)
[2019-06-06] MEDS: CEFEPIME 1GM/NS 0.9% 50 ML 50 ML IV SCH (08:35)
[2019-06-06 09:40] VITALS: BP 181/83
[2019-06-06] MEDS ORDERED: LISINOPRIL 10 MG TAB PO SCH (10:30)
--- NOTE | 2019-06-06 10:32 | NUR ---
CALLED AND SPOKE VIA PHONE WITH MD TO DISCUSS REHAB FOR APPROX 1 WEEK TO 10 DAYS, FAMILY AGREED AND CHOSE [facility], FILED CHOICE IN CHART AND FAXED CLINICALS TO [phone], COMPLETED RTF AND PASRR TO PUT WITH PACKET.
[2019-06-06 12:00] VITALS: BP 167/91
--- NOTE | 2019-06-06 12:35 | NUR ---
LONG-TERM FACILITY DISCHARGE INFORMATION PATIENT HAS BEEN ACCEPTED TO: [facility] NAME:[facility] ADDRESS:[id number] MD:KIT ROOM:111 NURSE CALL REPORT TO: [phone] IMM SIGNED AND OBTAINED (if applicable): IMM ON CHART THE FOLLOWING DOCUMENTS MUST ACCOMPANY PATIENT FOR TRANSFER: COPIED CHART: PACKET
--- NOTE | 2019-06-06 14:35 | Progress Note ---
DATE: 06/06/2019 Psychiatric Progress Note SUBJECTIVE: The patient evaluated and events noted. The patient is in the room. He is surrounded by family members. He appears to be doing better. Family members report the patient is improving. He is still having some disorientation, taking time remembering the current year. He has not received any p.r.n. IM medication. He is eating well. No hallucination. No side effects to medication. ASSESSMENT: 1. Unspecified psychosis. 2. Rule out dementia. PLAN: 1. To continue p.r.n. Ativan IV. 2. Continue with Seroquel p.r.n. p.o. 3. Continue Haldol p.r.n. IM. 4. Monitor for mood. 5. Supportive therapy. Dictated by Obdulia Nichole PA-C MD ALEXA BejaranoV/MODL /[id number]
--- NOTE | 2019-06-06 14:45 | NUR ---
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 77 154/74 exam: eomi perrl speech dysarhtric no aphasia +torticolis no meningismus trachea midline rrr cta abd soft no apparent choreoform movements no tremor a/p acute dystonic reaction vs metabolic chorea no response to dopamine but continue x 1 more day. benadryl 25 mg po prn movement dc benzotropine dc sineme and amantadine outpt follow up for neurophysiology testing
[2019-06-06] MEDS ORDERED: GABAPENTIN 100 MG CAP PO SCH (15:00)
--- NOTE | 2019-06-06 15:11 | NUR ---
REPORT GIVEN TO SEPIDE[facility] AT [facility].
[2019-06-06 16:00] VITALS: BP 122/66
--- NOTE | 2019-06-06 16:22 | NUR ---
PT DISCHARGED TO [facility], , PRESCRIPTIONS WERE SENT TO PHARMACY, VIA STRETCHER.
[2019-06-06] MEDS ORDERED: INSULIN LISPRO 100 UNIT/1 ML 3ML VIAL SQ SCH (16:30)
[2019-06-06] MEDS ORDERED: INSULIN GLARGINE 100 UNITS/ML VIAL SQ SCH (21:00)
== END 2019-06-06 16:20 | DRG 690 ==
LOC: ER 13:05 → ERHOLD 14:58 → MED/SURG 21:41
DX: N39.0 Urinary tract infection, site not specified (principal); F03.91 Unspecified dementia, unspecified severity, with behavioral disturbance; G93.40 Encephalopathy, unspecified; I25.10 Atherosclerotic heart disease of native coronary artery without angina pectoris; Z95.1 Presence of aortocoronary bypass graft; E11.42 Type 2 diabetes mellitus with diabetic polyneuropathy; Z85.038 Personal history of other malignant neoplasm of large intestine; E11.22 Type 2 diabetes mellitus with diabetic chronic kidney disease; I12.9 Hypertensive chronic kidney disease with stage 1 through stage 4 chronic kidney disease, or unspecified chronic kidney disease; N18.3 Chronic kidney disease, stage 3 (moderate); E78.5 Hyperlipidemia, unspecified; E11.65 Type 2 diabetes mellitus with hyperglycemia
CPT/HCPCS: 36415; 70450; 71045; 74230; 80048; 80053; 80061; 81001; 82140; 82550; 82553; 82948; 83036; 83518; 83605; 83735; 83880; 84439; 84443; 84484; 84550; 85025; 85610; 85730; 87040; 87070; 87086; 87400; 93005; 95812; 97139; 99284; J0360; J0692; J1170; J1200; J1815; J1817; J1885; J1940; J2060; J2405; J3370; J3486; J7030